=== PATIENT | female | born 1940 | race Caucasian/White ===

== ENCOUNTER 2022-11-10 01:19 | Day surgery (SDC) | payer MEDICARE, SELFPAY ==
[2022-10-25 15:06] VITALS: BMI 26.1
[2022-11-10 09:39] VITALS: BP 161/89; PULSE 76; RESP 17; TEMP 36; O2SAT 97; BMI 25.7
[2022-11-10] MEDS: LACTATED RINGERS 1,000 ML 150 ML IV CONT (09:55)
--- NOTE | 2022-11-10 10:09 | PM.HPGS ---
History of Present Illness History of Present Illness Consent: Risks, benefits, and alternatives have been discussed and questions answered. Patient agrees to proceed with procedure. Chief complaint: positive cologuard Narrative: Carolina Herrera is a 81 year old female referred for colon cancer screening. She was found have a positive Cologuard test Review of Systems Review of Systems: All systems reviewed & are unremarkable except as noted in HPI and below PMFSH Past Medical History Medical History Allergies Arthritis History of torn meniscus of knee Hypertension Thyroid disorder Trigger thumb, right thumb Surgical History Surgical History History of appendectomy History of bilateral mastectomy History of carpal tunnel surgery History of elbow surgery History of partial hysterectomy History of removal of ovarian cyst History of thyroidectomy History of tonsillectomy Family History Family History Father Hypertension Mother Diabetes mellitus Hypertension Depression Anxiety Heart disease Sibling Diabetes mellitus Hypertension Depression Anxiety Heart disease COPD (chronic obstructive pulmonary disease) Social History Social History Smoking status: Never smoker Alcohol intake: current Alcohol use details: 1 glass of wine every 2 months or so Lack of Transportation: No Lack of Food: Never True Current Housing: I Have Housing Concerned About Future Housing: No Difficulty Paying Gas/Electric Bills: No Difficulty Paying for Meds: No Currently Unemployed: No Education: High School Diploma/GED Difficulty w/ Childcare or Family Care: No Living arrangements: with family Spiritual care concerns: No Meds Home Medications and Allergies Home Medications Medication Instructions Recorded Confirmed Type cetirizine 10 mg tablet 5 mg PO DAILY 06/07/20 11/10/22 History vitamin B complex (B 1 tablet PO DAILY 06/07/20 11/10/22 History Complex-Vitamin B12 tablet) ergocalciferol (vitamin D2) 1,250 50,000 unit PO WEEKLY #12 caps 06/02/22 11/10/22 Rx mcg (50,000 unit) capsule metoprolol succinate 25 mg 12.5 mg PO DAILY #90 tabs 06/26/22 11/10/22 Rx tablet,extended release 24 hr levothyroxine 75 mcg tablet 75 mcg PO DAILY #90 tabs 08/28/22 11/10/22 Rx (Levo-T) lisinopril 20 mg tablet 20 mg PO DAILY #90 tabs 08/31/22 11/10/22 Rx aspirin 81 mg capsule 81 mg PO 3XW 10/25/22 11/10/22 History azelastine 137 mcg (0.1 %) nasal 1 spray intranasal Q12H PRN 10/25/22 11/10/22 History spray aerosol allergies Allergies Allergy/AdvReac Type Severity Reaction Status Date / Time PROCAINE HCL Allergy Unknown chest Uncoded 11/10/22 09:38 heaviness Vital Signs Vital Signs - 24 hr 11/10/22 09:39 Temperature 36.0 C L Pulse Rate 76 Respiratory Rate 17 Blood Pressure 161/89 H Pulse Oximetry 97 Oxygen Delivery Room Air Exam Const: General: alert Orientation/consciousness: patient oriented x3 Resp: Auscultation: clear to auscultation bilaterally Cardio: Rhythm: regular rhythm GI: GI Palp: Yes Soft to palpation and No Tenderness to palpation present (GI) Neuro: General: patient oriented x3 Assessment and Plan Assessment and plan (1) Colon cancer screening: Code(s): Z12.11 - Encounter for screening for malignant neoplasm of colon Status: Acute Assessment and Plan: Colonoscopy with possible biopsy or polypectomy or cautery or injection of substances.
[2022-11-10 11:01] VITALS: BP 110/64; PULSE 89; RESP 20; O2SAT 97
[2022-11-10 11:11] VITALS: BP 117/70; PULSE 66; RESP 16; O2SAT 99
[2022-11-10 11:21] VITALS: BP 135/83; PULSE 63; RESP 18; O2SAT 100
== END 2022-11-10 11:39 | disposition home or self-care (01) ==
PROVIDERS: PCP Internal Medicine; Visit Provider Internal Medicine Gastroenterology
PROC: 0DJD8ZZ Inspection of Lower Intestinal Tract, Via Natural or Artificial Opening Endoscopic (ICD-10-PCS; CPT 45378; principal; 2022-11-10 11:00)
DX: Z12.11 Encounter for screening for malignant neoplasm of colon (principal); K57.30 Diverticulosis of large intestine without perforation or abscess without bleeding; K63.5 Polyp of colon; R19.5 Other fecal abnormalities; I10 Essential (primary) hypertension; E89.0 Postprocedural hypothyroidism
CPT/HCPCS: 45380; 88305; J2704; J7120

== ENCOUNTER 2024-04-24 14:09 | Outpatient (CLI) | payer MEDICARE, SELFPAY ==
--- NOTE | ~2024-04-24 | US_ITS ---
EXAMINATION: US arterial ankle brachial ind DATE: 04/24/2024 14:52 INDICATION: Peripheral vascular disease. Lower limb pain, numbness and tingling and left lower limb f eels cold to touch. TECHNIQUE: Segmental pressures and plethysmographic and Doppler waveforms of the brachial and lower e xtremity arteries were obtained. COMPARISON: None. FINDINGS: Right and left brachial artery pressures of 144 mm Hg and 138 mm Hg, respectively, are concordant (no rmal difference <= 30 mmHg). The right ankle-brachial index (DAWOOD) is 1.13 (normal >= 0.9-1.0). The right great toe-brachial index (TBI) is 0.71 (normal >= 0.65). Arterial Doppler waveforms are biphasic with brisk systolic upstrokes at both right posterior tibial and dorsalis pedis arteries. The left DAWOOD is 1.14. The left TBI is 0.68. Arterial Doppler waveforms are biphasic with brisk systol ic upstrokes at both left posterior tibial and dorsalis pedis arteries. IMPRESSION: 1. No significant arterial occlusive disease with normal bilateral ABIs and TBI's Reviewed, dictated and finalized at location A. IMPRESSION: 1. No significant arterial occlusive disease with normal bilateral ABIs and TBI 's
--- NOTE | ~2024-04-24 | US_ITS ---
EXAMINATION: US carotid duplex BI DATE: 04/24/2024 14:52 INDICATION: Syncope and collapse. TECHNIQUE: Grayscale, color Doppler, and pulsed Doppler images of the cervical carotid arteries were obtained. The degree of vessel stenosis is placed in one of the following categories: normal, <50%, 5 0-69%, >=70% but less than near-occlusion, near-occlusion, or total occlusion. Note that percent sten osis relative to normal distal artery lumen diameter is indirectly measured from velocity measurement s as described by Abel, et al. Radiology 2003; 229:340-346. COMPARISON: None. FINDINGS: RIGHT: The right common carotid artery (CCA) peak systolic velocity (PSV) is 96 cm/s. The right internal car otid artery (ICA) PSV is 77 cm/s. The right ICA end-diastolic velocity (EDV) is 23 cm/s. The right IC A/CCA PSV ratio is 0.8. Grayscale and color Doppler images yield an estimate of <50% diameter reducti on from plaque in the ICA. There is antegrade flow in the right vertebral artery. LEFT: The left CCA PSV is 68 cm/s. The left ICA PSV is 65 cm/s. The left ICA EDV is 20 cm/s. The left ICA/C CA PSV ratio is 1.0. Grayscale and color Doppler images yield an estimate of <50% diameter reduction from plaque in the ICA. There is antegrade flow in the left vertebral artery. IMPRESSION: 1. <50% stenosis in the right internal carotid artery. 2. <50% stenosis in the left internal carotid artery. Reviewed, dictated and finalized at location A.
== END 2024-04-24 14:10 | disposition home or self-care (01) ==
LOC: ANHIMG 14:10
PROVIDERS: PCP Internal Medicine; Visit Provider Internal Medicine
DX: I73.9 Peripheral vascular disease, unspecified (principal); R55 Syncope and collapse; I65.23 Occlusion and stenosis of bilateral carotid arteries
CPT/HCPCS: 93880; 93922

== ENCOUNTER 2024-05-16 10:02 | Outpatient (CLI) | payer MEDICARE, SELFPAY ==
--- NOTE | 2024-05-16 10:05 | ECHO_ITS ---
Patient Info Name: Carolina Herrera Age: 83 years : 1940 Gender: Female Ht: 68 in Wt: 170 lbs BSA: 1.94 m2 HR: 78 bpm BP: 131 / 85 mmHg Heart Rhythm: Sinus Rhythm Technical Quality: Fair Exam Date: 05/16/2024 10:12 AM Exam Location: Echo Lab Patient Status: Outpatient Admit Date: 05/16/2024 Staff Ordering Physician: Michael Roque DO Motion Picture Equipment Machinist: Summer Wright RDCS Attending Provider: Michael Roque DO Referring Physician: Mya GILBERT; Exam Type: CA echo doppler color flow Study Info Indications R55 - Syncope and collapse Complete two-dimensional, color flow and Doppler transthoracic echocardiogram is performed. Summary 1. Complete two-dimensional, color flow and Doppler transthoracic echocardiogram is performed. 2. Left ventricular chamber dimension is normal. 3. Left ventricular systolic function is normal, estimated at 60-65%. 4. The left ventricular diastolic function is grade I diastolic dysfunction. 5. E/e' 8 is minimally elevated. 6. Global longitudinal strain is abnormal at -15.6%. 7. Left atrial chamber dimension is mildly enlarged. 8. There is mild aortic valve sclerosis. 9. There is trace tricuspid valve regurgitation. 10. No pulmonary hypertension, estimated pulmonary arterial systolic pressure is 23 mmHg. Left Ventricle E/e' 8 is minimally elevated. Global longitudinal strain is abnormal at -15.6%. Left ventricular chamber dimension is normal. Left ventricular systolic function is normal, estimated at 60-65%. The left ventricular diastolic function is grade I diastolic dysfunction. Right Ventricle Right ventricular systolic function is normal and with normal TAPSE 1.9 cm. Right ventricular chamber dimension is normal. Left Atria Left atrial chamber dimension is mildly enlarged. Right Atria Right atrial chamber dimension is normal. Aortic Valve The aortic valve is trileaflet. There is mild aortic valve sclerosis. There is no aortic valve stenosis. There is no aortic valve regurgitation. Pulmonic Valve There is no pulmonic regurgitation. Mitral Valve There is no mitral valve stenosis. There is no mitral valve regurgitation. Tricuspid Valve There is trace tricuspid valve regurgitation. No pulmonary hypertension, estimated pulmonary arterial systolic pressure is 23 mmHg. Pericardium/Pleural There is no pericardial effusion. Inferior Vena Cava Normal inferior vena cava with >50% collapse upon inspiration consistent with normal right atrial pressure, 5 mmHg. Aorta The aortic root size at the sinus of Valsalva is normal. Left Ventricular Outflow Tract Name Value Normal LVOT 2D LVOT Diameter 2.0 cm LVOT Doppler LVOT Peak Gradient 4 mmHg LVOT Mean Gradient 2 mmHg LVOT VTI 18 cm LVOT VTI/AV VTI Ratio 0.7 LVOT Stroke Volume 54 ml LVOT CO 3.7 l/min LVOT CI 1.9 l/min/m2 Pulmonic Valve Name Value Normal
--- NOTE | 2024-05-20 12:48 | WPDHOLTEREM ---
Holter/Event Monitor Holter/Event Monitor Date of procedure: 05/20/24 Holter/Event Procedure: 48 Hr Holter Monitor Diagnosis: Syncope Indications: Syncope Image/Tracing Quality: Adequate. Total analysis time of 47 hours and 59 minutes. Findin. Predominant rhythm is sinus rhythm with an average heart rate of 75 beats per minute. The minimum heart rate was 52 beats per minute. The maximum heart rate was 114 beats per minute. 2. No evidence of atrial fibrillation, SVT, pauses, heart block or ventricular tachycardia. 3. PAC burden is 0.4%. 4. PVC burden is 1.1%. 5. No patient reported symptoms.
== END 2024-05-16 10:03 | disposition home or self-care (01) ==
PROVIDERS: PCP Internal Medicine; Visit Provider Internal Medicine
DX: R55 Syncope and collapse (principal); I10 Essential (primary) hypertension
CPT/HCPCS: 93225; 93226; 93306

== ENCOUNTER 2024-12-03 10:15 | Outpatient (CLI) | payer MEDICARE, SELFPAY ==
--- NOTE | ~2024-12-03 | XR_ITS ---
EXAMINATION: XR chest 2V 12/03/2024 10:47 INDICATION: Dyspnea PROCEDURE: 2 view chest COMPARISON: 11/19/2018 FINDINGS: The lungs are clear. The cardiomediastinal silhouette is within normal limits. There are no pleural effusions. There is no pneumothorax suspected. There are surgical clips in the left axil la. IMPRESSION: 1: NO ACUTE CARDIOPULMONARY DISEASE. Reviewed, dictated and finalized at location A. LING SORTER
--- OUTSIDE RECORDS SUMMARY | 2024-12-03 11:10 | XMS_ITS | Clinical Summary ---
Author Organization [facility] Address [address] [place] [address] Care Team Providers Care Game Agent Name Role Phone Mya Michael Haines DO Primary Care Provider [phone] Source Comments [facility],non-owned Affiliates and Associated Physician Practices is amultiple site organization consisting of ambulatory clinics and hospital sitesin [place], [place], [place] and [place]. This disclosure is being madepursuant to the Care Everywhere program and may not contain all information available regarding this patient. Last updated 18.[facility] Allergies No known active allergies Medications * Be aware that medications may not be up to date on this document. Alwaysverify current medications with the patient. Medication Sig Dispensed Refills Start Date End Date Status lisinopril-hydroCHLOR Othiazide (PRINZIDE; ZESTORETIC) 20-12.5 MG tablet Take 1 (one) tablet by mouth once daily 10/07/2018 Active levothyroxine (SYNTHROID) 75 MCG tablet Take 1 (one) tablet by mouth once daily 10/07/2018 Active metoprolol succinate XL 24hr (TOPROL XL) 25 MG tablet Take 0.5 (one-half) tablet by mouth once daily 04/25/2019 Active aspirin (ASPIRIN) 81 MG chew tablet Take 1 (one) tablet by mouth every Sunday, Sunday & Sunday Active cetirizine (ZYRTEC) 10 MG tablet Take 1 (one) tablet by mouth once daily as needed Active Cyanocobalamin (VITAMIN B-12 PO) Take by mouth once daily Active Cholecalciferol 1.25 MG (40731 UT) Take 50,000 Units by mouth every 7 days Active pantoprazole EC (PROTONIX) 40 MG tablet Take 40 mg by mouth once daily 11/03/2020 Active vitamin D, ergocalciferol, (DRISDOL) 1.25 mg (50,000 UT) capsule 12/21/2021 Activ e Active Problems Problem Noted Date Diagnosed Date History of melanoma 12/01/2022 Neoplasm of uncertain behavior of skin 2 Digital mucous cyst of finger of right hand 06/2021 Assessment & Plan (11/13/2020 1:02 PM SHRIMP CLEANER): ?? Counseled pt on Dx, etiology, disease course, and Tx options. ?? After thorough discussion of risks/benefit and expectations, pt wish to proceed with the plan of: ?? Hand Surgeon Referral [place] angioma 11/12/2020 Assessment & Plan (11/13/2020 1:03 PM SHRIMP CLEANER): ?? Explained benign nature, reassurance provided. Basal cell carcinoma (BCC) of skin of trunk 06/2020 Xerosis cutis 12/26/2019 History of actinic keratoses 11/15/2018 Melanocytic nevi of trunk 11/10/2017 Inflamed seborrheic keratosis 11/10/2017 History of nonmelanoma skin cancer 11/10/2017 Assessment & Plan (11/13/2020 1:03 PM SHRIMP CLEANER): -No evidence of recurrence -Sun protection behaviors advised Seborrheic keratosis 10/25/2015 Assessment & Plan (11/13/2020 1:02 PM SHRIMP CLEANER): ?? Explained benign nature, reassurance provided. Lentigines 10/25/2015 Actinic keratosis 10/16/2014 Encounters Date Type Department Care Team Description 10/10/2024 10:00 AM SHRIMP CLEANER Office Visit [facility] - Dermatology [address] [place] [address] [place] [address] Jorge L Carpio MD Melanocytic nevi of trunk (Primary Dx); History of melanoma; History of nonmelanoma skin cancer; Seborrheic keratosis; Solar lentiginosis; Inflamed seborrheic keratosis; Hemangioma of lip 10/10/2024 Travel from Last 3 Months Immunizations Name Administration Dates Next Due INFLUENZA VACCINE 08/26/2022,08/15/2021,07/26/20 19 INFLUENZA VACCINE, ADJUVANTE D, QUADR. (FLUAD QUADRIVALENT; 65Y+) (AIIV4) 08/14/2020 Zoster Hzv Vacc Recombinant Inj Im 10/31/2020, Family History Medical History Relation Name Comments None Known Brother Cancer - Skin, Non Melanoma Father None Known Maternal Aunt None Known Maternal Grandfather None Known Maternal Grandmother None Known Maternal Uncle None Known Mother None Known Other None Known Paternal Aunt None Known Paternal Grandfather None Known Paternal Grandmother None Known Paternal Uncle None Known Sister Allergy (Severe) Neg Hx Asthma Neg Hx CVA Neg Hx Cancer Neg Hx Cancer - Breast Neg Hx Cancer - Other Neg Hx Cancer - Skin, Melanoma Neg Hx Eczema Neg Hx Hemophilia Neg Hx Psoriasis Neg Hx Rashes/Skin Problems Neg Hx Relation Name Status Comments Brother Father Maternal Aunt Maternal Grandfather Maternal Grandmother Maternal Uncle Mother Other Paternal Aunt Paternal Grandfather Paternal Grandmother Paternal Uncle Sister Social History Tobacco Use Types Packs/Day Years Used Date Smoking Tobacco: Never Smokeless Tobacco: Never Tobacco Cessation:Counseling Given: Not Answered Alcohol Use Standard Drinks/Week Comments Yes 1 (1 standard drink = 0.6 oz pur e alcohol) maybe 1 drink a month Sex and Gender Information Value Date Recorded Sex Assigned at Not on file Gender Identity Not on file Sexual Orientation Not on file Last Filed Vital Signs Vital Sign Reading Time Taken Comments Blood Pressure 160/90 08/17/2022 1:33 PM CDT Pulse 72 08/17/2022 1:33 PM CDT Temperature - - Respiratory Rate - - Oxygen Saturation 98% 11/22/2016 9:21 AM SHRIMP CLEANER Inhaled Oxygen Concentration - - Weight 72.6 kg (160 lb) 06/03/2020 8:16 AM CDT Height 172.7 cm (5' 8 ) 06/03/2020 8:16 AM CDT Body Mass Index 24.33 06/03/2020 8:16 AM CDT Plan of Treatment Upcoming Encounters Date Type Department Care Team (Late st Contact Info) Description 03/20/2025 9:10 AM CDT Office Visit [facility] - Dermatology [address] [place] [address] Jorge L Carpio MD [address] [place] [address] [address] [place] [address] Health Maintenance Due Date Last Done Comments BONE DENSITY TESTING 1940 DTAP/TDAP/TD VACCINES (1 - Tdap) 1961 PNEUMOCOCCAL VACCINE 50+ (1 of 1 - PCV) 1992 Respiratory Syncytial Virus (RSV) Vaccine Pt: or over 60 yrs (1 - 1-dose 75+ series) 2017 COVID-19 VACCINE ( season) 2024 01/04/2021, 12/02/2020 INFLUENZA VACCINE (#1) 2024 , 08/15/2021, 08/14/2020, Additional history exists DEPRESSION SCREENING 11/05/2024 MEDICARE AWV ? CALENDAR YEAR 2024 ZOSTER VACCINE Completed 10/31/2020, 08/14/2020 HEPATITIS B VACCINE Aged Out No longe r eligible based on patient's age to complete this topic HIB VACCINE Aged Out No longer eligi ble based on patient's age to complete this topic HPV VACCINE Aged Out No longer eligi ble based on patient's age to complete this topic MENINGOCOCCAL (Group B) VACCINE Aged Out No longer eligible based on patient's age to complete this topic MENINGOCOCCAL VACCINE Aged Out No brian jose luis eligible based on patient's age to complete this topic Procedures Procedure Name Priority Date/Time Associated Diagnosis Comments MA DESTRUCT BENIGN LESION, - Routine 10/10/2024 10:46 AM SHRIMP CLEANER Inflamed seborrheic keratosis from Last 3 Months Results * MA DESTRUCT BENIGN LESION, -14 (10/10/2024 10:46 AM SHRIMP CLEANER) Narrative Jorge L Carpio MD - 10/10/2024 10:46 AM SHRIMP CLEANER Tani Vásquez MD ? 10/10/2024 10:47 AM Diagnosis and treatment options discussed. Cryotherapy (Liquid Nitrogen) to 1 ISK(s) x 6-10 seconds each. Number of cycles: 1 Wound care reviewed. Tani Vásquez MD 10/10/2024 PGY-3 Dermatology Resident Jorge L Carpio MD PROCEDURE/MINOR SURG ICAL ORDERABLES from Last 3 Months Care Teams Game Agent Relationship Specialty Start Date End Date Michael Roque DO [address] [place] [address] PCP - General Internal Medicine 10/10/24
--- OUTSIDE RECORDS SUMMARY | 2024-12-03 11:10 | XMS_ITS | Referral Summary ---
Author Organization [facility] Address [address] [place] [address] Care Team Providers Care Heading And Priming Tool Setter Name Role Phone Michael Roque Primary Care Provider [phone] Source Comments [facility],non-owned Affiliates and Associated Physician Practices is amultiple site organization consisting of ambulatory clinics and hospital sitesin [place], [place], [place] and [place]. This disclosure is being madepursuant to the Care Everywhere program and may not contain all information available regarding this patient. Last updated 18.[facility] Encounters Date Type Department Care Team Description 10/10/2024 Travel 10/10/2024 10:00 AM WAREHOUSE MANAGER Office Visit [facility] - Dermatology [address] [place] [phone] Jorge L Carpio MD Melanocytic nevi of trunk (Primary Dx); History of melanoma; History of nonmelanoma skin cancer; Seborrheic keratosis; Solar lentiginosis; Inflamed seborrheic keratosis; Hemangioma of lip from Last 3 Months Allergies No known active allergies Medications * [...] mouth once daily Active Cholecalciferol 1.25 MG (72356 UT) Take 50,000 Units by mouth every [...] 06/2021 Assessment & Plan (11/13/2020 1:02 PM WAREHOUSE MANAGER): ?? Counseled pt on Dx, etiology, disease course, and Tx options. ?? After thorough discussion of risks/benefit and expectations, pt wish to proceed with the plan of: ?? Hand Surgeon Referral [place] angioma 11/12/2020 Assessment & Plan (11/13/2020 1:03 PM WAREHOUSE MANAGER): ?? Explained benign nature, reassurance provided. Basal cell carcinoma (BCC) of skin of trunk 06/2020 Xerosis cutis 12/26/2019 History of actinic keratoses 11/15/2018 Melanocytic nevi of trunk 11/10/2017 Inflamed seborrheic keratosis 11/10/2017 History of nonmelanoma skin cancer 11/10/2017 Assessment & Plan (11/13/2020 1:03 PM WAREHOUSE MANAGER): -No evidence of recurrence -Sun protection behaviors advised Seborrheic keratosis 10/25/2015 Assessment & Plan (11/13/2020 1:02 PM WAREHOUSE MANAGER): ?? Explained benign nature, reassurance provided. Lentigines 10/25/2015 Actinic keratosis 10/16/2014 Immunizations Name Administration Dates Next Due INFLUENZA VACCINE 08/26/2022,08/15/2021,07/26/20 19 INFLUENZA VACCINE, ADJUVANTE D, QUADR. (FLUAD QUADRIVALENT; 65Y+) (AIIV4) 08/14/2020 Zoster Hzv Vacc Recombinant Inj Im 10/31/2020, Social History Tobacco Use Types Packs/Day Years [...] - Oxygen Saturation 98% 11/22/2016 9:21 AM WAREHOUSE MANAGER Inhaled Oxygen Concentration - - Weight 72.6 kg (160 lb) 06/03/2020 8:16 AM CDT Height 172.7 cm (5' 8 ) 06/03/2020 8:16 AM CDT Body Mass Index 24.33 06/03/2020 8:16 AM CDT Plan of Treatment Upcoming Encounters Date Type Department Care Team (Late st Contact Info) Description 03/20/2025 9:10 AM CDT Office Visit [facility] - Dermatology [address] [place] [address], [place] [address] Jorge L Carpio MD [address] [place] [address] [place] [address] Procedures Procedure Name Priority Date/Time Associated Diagnosis Comments [place] DESTRUCT BENIGN LESION, 1-14 Routine 10/10/2024 10:46 AM WAREHOUSE MANAGER Inflamed seborrheic keratosis from Last 3 Months Results * WA DESTRUCT BENIGN LESION, 1-14 (10/10/2024 10:46 AM WAREHOUSE MANAGER) Narrative Jorge L Carpio MD - 10/10/2024 10:46 AM WAREHOUSE MANAGER Tani Vásquez MD ? 10/10/2024 10:47 AM Diagnosis and treatment options discussed. Cryotherapy (Liquid Nitrogen) to 1 ISK(s) x 6-10 seconds each. Number of cycles: 1 Wound care reviewed. Tani Vásquez MD 10/10/2024 PGY-3 Dermatology Resident Jorge L Carpio MD PROCEDURE/MINOR SURG ICAL ORDERABLES from Last 3 Months Care Teams Heading And Priming Tool Setter Relationship Specialty Start Date End Date Michael Roque DO [address] [place] [address] PCP - General Internal Medicine 10/10/24
--- OUTSIDE RECORDS SUMMARY | 2024-12-03 11:10 | XMS_ITS | Patient Health Summary ---
Author Organization [facility] Address [address] [place] [address] Care Team Providers Care Board Certified Music Therapist Name Role Phone MyaMichael DO Primary Care Provider [phone] Note from [facility],non-owned Affiliates and Associated Physician Practices is amultiple site organization consisting of ambulatory clinics and hospital sitesin [place], [place], [place] and [place]. This disclosure is being madepursuant to the Care Everywhere program and may not contain all information available regarding this patient. Last updated 18.[facility] Allergies No known active allergies* Lidocaine(Palpitations) -High Criticality,Inactive * Procaine(Shortness of Breath) -High Criticality,Inactive Medications * Be aware that medications may not be up to date on this document. Alwaysverify current medications with the patient. * lisinopril-hydroCHLOROthiazide (PRINZIDE; ZESTORETIC) 20-12.5 MG tablet (Started 10/07/2018) Take 1 (one) tablet by mouth once daily * levothyroxine (SYNTHROID) 75 MCG tablet(Started 10/07/2018) Take 1 (one) tablet by mouth once daily * metoprolol succinate XL 24hr (TOPROL XL) 25 MG tablet(Started 04/25/2019) Take 0.5 (one-half) tablet by mouth once daily * aspirin (ASPIRIN) 81 MG chew tablet Take 1 (one) tablet by mouth every Sunday, Sunday & Sunday * cetirizine (ZYRTEC) 10 MG tablet Take 1 (one) tablet by mouth once daily as needed * Cyanocobalamin (VITAMIN B-12 PO) Take by mouth once daily * Cholecalciferol 1.25 MG (62837 UT) Take 50,000 Units by mouth every 7 days * pantoprazole EC (PROTONIX) 40 MG tablet(Started 11/03/2020) Take 40 mg by mouth once daily * vitamin D, ergocalciferol, (DRISDOL) 1.25 mg (50,000 UT) capsule(Started 12/21/2021) Active Problems Problem Noted Date Diagnosed Date History of melanoma 12/01/2022 Neoplasm of uncertain behavior of skin 2 Digital mucous cyst of finger of right hand 06/2021 [place] angioma 11/12/2020 Basal cell carcinoma (BCC) of skin of trunk 06/2020 Xerosis cutis 12/26/2019 History of actinic keratoses 11/15/2018 Melanocytic nevi of trunk 11/10/2017 Inflamed seborrheic keratosis 11/10/2017 History of nonmelanoma skin cancer 11/10/2017 Seborrheic keratosis 10/25/2015 Lentigines 10/25/2015 Actinic keratosis 10/16/2014 Immunizations * INFLUENZA VACCINE(Given 08/26/2022, 08/15/2021, 07/26/2019) * INFLUENZA VACCINE, ADJUVANTED, QUADR. (FLUAD QUADRIVALENT; 65Y+) (AIIV4)(Given 08/14/2020) * Zoster Hzv Vacc Recombinant Inj Im(Given 10/31/2020, 08/14/2020) Social History Tobacco Use Types Packs/Day Years [...] - Oxygen Saturation 98% 11/22/2016 9:21 AM ELECTRICAL CONTROLS ENGINEER Inhaled Oxygen Concentration - - Weight 72.6 kg (160 lb) 06/03/2020 8:16 AM CDT Height 172.7 cm (5' 8 ) 06/03/2020 8:16 AM CDT Body Mass Index 24.33 06/03/2020 8:16 AM CDT Procedures * MO DESTRUCT BENIGN LESION, 1-14(Performed 10/10/2024) Performed for Inflamed seborrheic keratosis * MO DESTRUCT BENIGN LESION, 1-14(Performed 04/15/2024) Performed for Inflamed seborrheic keratosis * MO DESTROY PREMALIG LESION, 1ST LESION(Performed 04/15/2024) Performed for Actinic keratosis * MO DESTRUCT BENIGN LESION, 1-14(Performed 09/04/2023) Performed for Seborrheic keratoses, inflamed * MO DESTROY PREMALIG LESION, 1ST LESION(Performed 05/30/2023) Performed for Actinic keratosis * MO DESTROY PREMALIG LESION, 2-14(Performed 05/30/2023) Performed for Actinic keratosis * MO CHMSRG MOHS MG TQ T/A/L 1ST STAG 5 BLOCKS(Performed 12/21/2022) Performed for Basal cell carcinoma (BCC) of chest * MO REPR CMPL WND TRUNK 2.6-7.5CM(Performed 12/21/2022) Performed for Basal cell carcinoma (BCC) of chest * MO TANGNTL BX SKIN SINGLE LES(Performed 12/01/2022) Performed for Neoplasm of uncertain behavior of skin * DERMATOPATHOLOGY(Performed 12/01/2022) Performed for Neoplasm of uncertain behavior of skin * MO INTMD WND REPAIR REST BODY 2.6-7.5(Performed 08/17/2022) Performed for Malignant melanoma of neck (HCC) * PROC EXCISION LESION TRUNK ARM LEG MALIG(Performed 08/17/2022) Performed for Malignant melanoma of neck (HCC) * MO EXC SKIN MALIG 3.1-4CM FACE,FACIAL(Performed 08/10/2022) Performed for Melanoma of neck (HCC) * DERMATOPATHOLOGY(Performed 08/10/2022) Performed for Melanoma of neck (HCC) * MO TANGNTL BX SKIN SINGLE LES(Performed 07/28/2022) Performed for Neoplasm of uncertain behavior of skin * DERMATOPATHOLOGY(Performed 07/28/2022) Performed for Neoplasm of uncertain behavior of skin * MO DESTRUCT BENIGN LESION, 1-14(Performed 01/13/2022) Performed for Seborrheic keratoses, inflamed * MO DESTROY PREMALIG LESION, 1ST LESION(Performed 01/13/2022) Performed for Actinic keratosis * MO DESTR MALIG SCAL,NCK,HAND 1.1-2 CM(Performed 08/12/2020) Performed for Basal cell carcinoma (BCC) of neck * MO CHMSRG MOHS MG TQ H/N/H/F/G 1ST STAG 5 BLOC(Performed 06/03/2020) 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 * MO REPR CMPL WND HEAD,FAC,HAND 1.1-2.5(Performed 06/03/2020) 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 * MO TANGNTL BX SKIN SINGLE LES(Performed 05/14/2020) Performed for Neoplasm of uncertain behavior of skin * MO TANGNTL BX SKIN EA SEP ADDL(Performed 05/14/2020) Performed for Neoplasm of uncertain behavior of skin * DERMATOPATHOLOGY(Performed 05/14/2020) Performed for Neoplasm of uncertain behavior of skin * MO DESTRUCT BENIGN LESION, 1-14(Performed 12/26/2019) Performed for Inflamed seborrheic keratosis * MO DESTROY PREMALIG LESION, 1ST LESION(Performed 12/26/2019) Performed for Actinic keratosis * MO DESTR MALIG TRUNK,EXTREM 0.6-1 CM(Performed 11/26/2018) Performed for Basal cell carcinoma (BCC) of skin of left upper extremity including shoulder * MO TANGNTL BX SKIN SINGLE LES(Performed 11/15/2018) Performed for Neoplasm of uncertain behavior of skin * DERMATOPATHOLOGY(Performed 11/15/2018) Performed for Neoplasm of uncertain behavior of skin * DERMATOPATHOLOGY(Performed 09/06/2016) * DERMATOPATHOLOGY(Performed 07/11/2011) Results * MO DESTRUCT BENIGN LESION, 1-14 (10/10/2024 10:46 AM ELECTRICAL CONTROLS ENGINEER) Narrative Jorge L Carpio MD - 10/10/2024 10:46 AM ELECTRICAL CONTROLS ENGINEER Tani Vásquez MD ? 10/10/2024 10:47 AM Diagnosis and treatment options discussed. Cryotherapy (Liquid Nitrogen) to 1 ISK(s) x 6-10 seconds each. Number of cycles: 1 Wound care reviewed. Tani Vásquez MD 10/10/2024 PGY-3 Dermatology Resident Jorge L Carpio MD PROCEDURE/MINOR SURG ICAL ORDERABLES * MO DESTRUCT BENIGN LESION, 1-14 (04/15/2024 5:37 PM CDT) Narrative Jorge L Carpio MD - 04/15/2024 5:37 PM CDT Jorge L Carpio MD ? 04/15/2024 ??5:37 PM Procedure: liquid nitrogen/cryotherapy Liquid nitrogen was applied with the spray cannister to the affected skin lesion(s). The expected reaction ranges from minimal changes to scabbing, crust, blistering, or swelling, which can be painful. Color changes different from the surrounding skin are expected and can be either supervisor bit and shank department or darker--this can sometimes take a long time to fully resolve, and in some cases, it may not ever fully look like the surrounding skin--there is a delicate balance between freezing hard enough for efficacy and such side effects that is different for different people. There is a small risk of infection similar to any time there is a break in the skin. Blister/wound care discussed, handout given. Return if lesions fail to fully resolve. Verbal consent obtained prior to any procedures being done. Jorge L Carpio MD PROCEDURE/MINOR SURG ICAL ORDERABLES * MO DESTROY PREMALIG LESION, 1ST LESION (04/15/2024 5:36 PM CDT) Narrative Jorge L Carpio MD - 04/15/2024 5:36 PM CDT Jorge L Carpio MD ? 04/15/2024 ??5:36 PM Procedure: liquid nitrogen/cryotherapy Liquid nitrogen was applied with the spray cannister to the affected skin lesion(s). The expected reaction ranges from minimal changes to scabbing, crust, blistering, or swelling, which can be painful. Color changes different from the surrounding skin are expected and can be either supervisor bit and shank department or darker--this can sometimes take a long time to fully resolve, and in some cases, it may not ever fully look like the surrounding skin--there is a delicate balance between freezing hard enough for efficacy and such side effects that is different for different people. There is a small risk of infection similar to any time there is a break in the skin. Blister/wound care discussed, handout given. Return if lesions fail to fully resolve. Verbal consent obtained prior to any procedures being done. Jorge L Carpio MD PROCEDURE/MINOR SURG ICAL ORDERABLES * MO DESTRUCT BENIGN LESION, 1-14 (09/04/2023 2:12 PM CDT) Ariana Nolasco MD - 09/04/2023 2:12 PM CDT Connor Peacock MD ? 09/04/2023 ??2:13 PM Diagnosis and treatment options discussed. Liquid nitrogen was applied to 3 lesions (R yarsani, R FA, L FH). The expected reaction ranges from minimal changes to scabbing, crust, blistering, or swelling, which can be painful. Color changes different from the surrounding skin are expected and can be either supervisor bit and shank department or darker--this can sometimes take a long time to fully resolve, and in some cases, it may not ever fully look like the surrounding skin--there is a delicate balance between freezing hard enough for efficacy and such side effects that is different for different people. There is a small risk of infection similar to any time there is a break in the skin. Blister/wound care discussed, handout given. Return if lesions fail to fully resolve. Verbal consent obtained prior to any procedures being done. Connor Peacock MD [facility] Dermatology Resident, PGY-4 Ariana Blandon MD PROCEDURE/MINOR SURG ICAL ORDERABLES * MO DESTROY PREMALIG LESION, 2-14, MO DESTROY PREMALIG LESION, 1ST LESION (05/30/2023 8:04 AM CDT) Narrative Jorge L Carpio MD - 05/30/2023 8:04 AM CDT Jorge L Carpio MD ? 05/30/2023 ??8:04 AM Procedure: liquid nitrogen/cryotherapy Liquid nitrogen was applied with the spray cannister to the affected skin lesion(s). The expected reaction ranges from minimal changes to scabbing, crust, blistering, or swelling, which can be painful. Color changes different from the surrounding skin are expected and can be either supervisor bit and shank department or darker--this can sometimes take a long time to fully resolve, and in some cases, it may not ever fully look like the surrounding skin--there is a delicate balance between freezing hard enough for efficacy and such side effects that is different for different people. There is a small risk of infection similar to any time there is a break in the skin. Blister/wound care discussed, handout given. Return if lesions fail to fully resolve. Verbal consent obtained prior to any procedures being done. Jorge L Carpio MD PROCEDURE/MINOR SURG ICAL ORDERABLES * MO REPR CMPL WND TRUNK 2.6-7.5CM, MO CHMSRG MOHS MG TQ T/A/L 1ST STAG 5 BLOCKS (12/21/2022 2:10 PM ELECTRICAL CONTROLS ENGINEER) Narrative Danica Lezama MD - 12/21/2022 2:10 PM ELECTRICAL CONTROLS ENGINEER Danica Lezama MD ? 12/22/2022 ??5:03 PM Mohs Micrographic Surgery Operative Note Procedure: Mohs micrographic surgery Date of service: 12/21/2022 Location: left upper chest Preop diagnosis: Basal cell carcinoma; infiltrative Postop diagnosis: Same Mohs AUC score: 7 Number of stages: 1 Preop size: 1.0x1.4 cm Postop size: 2.2x2.3 cm Depth of final defect: adipose Previous dermpath accession #: [id number] Repair type: complex Mohs accession #: [id number] Surgeon and Pathologist: Danica Lezama MD served as both surgeon and pathologist. No other physician was involved in the cancer removal or pathology interpretation. Assistants: N/A Indications for Mohs Surgery Removal of the patient's tumor is complicated by the following clinical features: aggressive pattern on initial pathology. Based on my medical judgement, Mohs surgery is the most appropriate treatment for this cancer compared to other treatments. I discussed alternative treatments to Mohs surgery and specifically discussed the risks and benefits of curettage, excision with permanent sections, and foregoing treatment. The rationale for Mohs was explained to the patient and consent was obtained. The risks, benefits and alternatives to therapy were discussed in detail. Specifically, the risks of infection, scarring, bleeding, prolonged wound healing, incomplete removal, allergy to anesthesia, nerve injury and recurrence were addressed. Prior to the procedure, the treatment site was clearly identified and confirmed by the patient. All components of [place] Protocol/PAUSE Rule completed. STAGE I: The patient was placed on the operating table. The cancer was identified and outlined. The entire surgical field was prepped with hibiclens. The surgical site was anesthetized using Lidocaine 1% with epinephrine 1:100,000 buffered with sodium bicarbonate 8.4% in a 1:10 ratio.The area of clinically apparent tumor was debulked with a 2 mm curette. The layer of tissue was then surgically excised using a #15 blade and was then transferred onto a specimen sheet maintaining the orientation of the specimen. Hemostasis was obtained using monopolar electrodesiccation. The wound site was then covered with a dressing while the tissue samples were processed for examination. The specimen was oriented, mapped and divided. Each section was then inked and processed in the Mohs lab using the Mohs protocol and submitted for frozen section. The histopathologic sections were reviewed by the surgeon in conjunction with the reference map. Total blocks: 1 Total slides: 3 Frozen sections were examined by the surgeon. No additional tumor was identified. No additional histologic findings appreciated. Cell morphology: N/A. No tumor seen. Pathological pattern: N/A. No tumor seen. Depth of invasion: N/A. No tumor seen. Scar tissue: Not Present Perineural invasion: Not Present Inflammation obscuring possible tumor presence: Not Present [facility] CLIA # [id number] Mohs laborer laboratory: Danica Lezama MD REPAIR: Complex Primary Surgeon: Danica Lezama MD Work Ticket Distributor: N/A Repair Size: 5.1 cm Sutures: 4-0 PDS Width of underminin.5 cm Free margin of the nostrils, helical rim, or vermilion lip involved: NO Presence of exposed bone/cartilage/tendon/named neurovascular structure: NO Use of retention sutures: YES Indication for complex repair: Complex repair was performed because inelasticity of skin made closure difficult, to avoid a deforming, depressed, and contracted scar, and to preserve the functional anatomy. The defect was identified and a marking pen was used to plan the repair. The area was infiltrated with Lidocaine 1% with epinephrine 1:100,000 buffered with sodium bicarbonate 8.4% in a 1:10 ratio, prepped with iodine and draped with sterile towels. The wound was debeveled. Extensive undermining was performed to a distance of at least 2.5 cm (defect width perpendicular to closure is 2.2 cm) along one edge of the entire surgical defect. Cones were excised within relaxed skin tension lines on both sides of the defect. Hemostasis was obtained using monopolar electrodesiccation. The dermis and subcutaneous tissue were then approximated using buried vertical mattress sutures. Percutaneous simple running sutures were carefully placed for maximum eversion and meticulous wound edge approximation. Careful attention was paid to avoid distorting any nearby free margins. The wound was cleansed with saline and ointment was applied along the wound surface. A sterile pressure dressing was applied. Wound care instructions were given verbally and in writing. The patient left the operating suite in stable condition. Patient was informed that additional refinement of the resulting surgical scar may be used as a second stage of this reconstruction. Angela Temple CMA I have reviewed the note, edited it as necessary and performed the entire procedure. Danica Lezama MD Dementia Program Director 12/21/2022 Danica Lezama MD PROCEDURE/MINOR SURG ICAL ORDERABLES * MO TANGNTL BX SKIN SINGLE LES (12/01/2022 9:51 AM ELECTRICAL CONTROLS ENGINEER) Narrative oJrge L Carpio MD - 12/01/2022 9:51 AM ELECTRICAL CONTROLS ENGINEER Edward Sue MD ? 12/01/2022 ??9:51 AM Risks, benefits and alternatives to shave biopsy were discussed with the patient. Verbal consent was obtained. Encounter Diagnoses Name Primary? ? ? History of melanoma Yes ? ? History of nonmelanoma skin cancer ? Neoplasm of uncertain behavior ?? Location: left upper chest Skin prep: Alcohol Anesthesia: 1% lidocaine with epinephrine Hemostasis: Aluminum chloride Dressing and wound care discussed. Specimen(s) placed in a patient labeled container and sent to [facility]. Patient agrees to phone call for results and message if not available. Edward Sue MD Jorge L Carpio MD PROCEDURE/MINOR SURG ICAL ORDERABLES * DERMATOPATHOLOGY (12/01/2022 12:00 AM ELECTRICAL CONTROLS ENGINEER) Only the most recent of7 resultswithin the time period is included. Case Report Dermatopathology Report ? Case: [id number] ? Authorizing Provider: ??Jorge L Carpio MD ? Collected: ? 12/01/2022 12:00 AM ? Ordering Location: ? [facility] ?Received: ?12/01/2022 10:40 AM ? Dermatology ? Pathologist: ? Jennifer Macias MD ? Specimen: ?Skin, left upper chest ? 3 1:25 PM [facility] Final Diagnosis Specimen A. SKIN, left upper chest: BASAL CELL CARCINOMA, INFILTRATIVE PATTERN (C44.519) 3 1:25 PM [facility] Clinical History BCC vs. ISK vs. Other 3 1:25 PM [facility] Gross Description Specimen A: Received is one formalin filled container labeled with the patient's name and designated left upper chest. The specimen consists of a shave biopsy measuring [id number]. Jar 0. 3 1:25 PM [facility] Microscopic Description Specimen A. SKIN, left upper chest: Within the dermis there are nodular aggregates of basaloid cells associated with fibromyxoid stroma and epithelial-stromal clefts. At the advancing margin of the neoplasm, there are smaller angulated nests that infiltrate the dermis. 3 1:25 PM [facility] Disclaimer An external and internal positive and negative controls are appropriate for the histochemical, immunohistochemical and immunofluorescence stain(s) in this case (if any), except where stated explicitly. The performance characteristics of the stain(s) cited in this report were developed and its performance characteristic determined by the Dermatopathology Laboratory at [facility], directed by Dr. Taiwo Vázquez. These tests need not be, and therefore are not, approved by the [place] Food and Drug Administration. The tests are used for clinical purposes. Billing Codes Specimen Charges Stain Charges 23746 1 3 1:25 PM [facility] Embedded Images 3 1:25 PM [facility] Pathology/Cytolog y TISSUE SPECIMEN FROM SKIN / Unknown 12/01/2022 12/01/2022 10:40 AM ELECTRICAL CONTROLS ENGINEER Jorge L Carpio MD LAB - PATHOLOGY/CYTO LOGY ORDERABLES DERMATOPATHOLOGY LABORATORY [facility] - Department of Dermatology [address], [address] [phone] * MO INTMD WND REPAIR REST BODY 2.6-7.5 (08/17/2022 3:06 PM CDT) Narrative Danica Lezama MD - 08/17/2022 3:06 PM CDT Danica Lezama MD ? 08/19/2022 10:10 PM Patient presents to discuss repair options for the defect resulting from the below procedure: Date of Excision: 08/10/2022 Surgery: Slow Mohs staged excision Stage #: 1 Tumor Type: Malignant melanoma Location: left neck Derm-Path Pre-Op Size: 1.3x1.1 cm Post-Op Size: 3.9 cm Surgical margins: 4.0 cm Level of Defect: fascia Repair Type: path pending DOS: 08/17/2022 REPAIR: Intermediate repair Primary Surgeon: Danica Lezama MD Work Ticket Distributor: N/A Repair Size: 6.8 cm Sutures: 4-0 monocryl. 6-0 fast absorbing gut The defect was identified and a marking pen was used to plan the repair. The area was infiltrated with Lidocaine 1% with epinephrine 1:100,000 buffered with sodium bicarbonate 8.4% in a 1:10 ratio, prepped with hibiclens and draped with sterile towels. The wound was debeveled and undermined widely. Cones were excised within relaxed skin tension lines on both sides of the defect. Hemostasis was obtained using monopolar electrodesiccation. The dermis and subcutaneous tissue were then approximated using buried vertical mattress sutures. Percutaneous simple interrupted sutures were carefully placed for maximum eversion and meticulous wound edge approximation. Careful attention was paid to avoid distorting any nearby free margins. The wound was cleansed with saline and ointment was applied along the wound surface. A sterile pressure dressing was applied. Wound care instructions were given verbally and in writing. The patient left the operating suite in stable condition. Patient was informed that additional refinement of the resulting surgical scar may be used as a second stage of this reconstruction. Dr. Lezama performed the entire surgery, and documentation used to initiate this operative report. I entered the information in our [facility] DocFlowsheet with the information provided by Dr. Lezama on her handwritten, paper format, surgical worksheet, which was then used to initiate the create of this note. Dr. Lezama then reviewed and edited the note as needed to complete the note. Aisha Graf LPN I have reviewed the note, edited it as necessary and performed the entire procedure. Danica Lezama MD Experiential Therapist 08/17/2022 Danica Lezama MD PROCEDURE/MINOR SURG ICAL ORDERABLES * MO EXC SKIN MALIG 3.1-4CM FACE,FACIAL (08/10/2022 1:10 PM CDT) Narrative Danica Lezama MD - 08/10/2022 1:10 PM CDT Danica Lezama MD ? 08/19/2022 ??9:25 PM Date of Service: 08/10/2022 Surgery: Slow Mohs staged excision Stage #: 1 Tumor Type: Malignant melanoma Location: left neck Derm-Path Pre-Op Size: 1.3x1.1 cm Post-Op Size: 3.3 x 3.1 Defect size: 3.9 x 3.9 cm Surgical margins: 1.0 cm Level of Defect: fascia Repair Type: path pending Primary Surgeon: Danica Lezama MD Work Ticket Distributor: N/A INDICATIONS: The risks of bleeding, infection, discomfort, incomplete removal, nerve damage, and scar formation were explained to the patient. The possible need for additional stages, additional surgical procedures or treatment may be recommended based on the pathology results. The patient understands that the surgical site may remain open until the margins are clear of tumor. Evaluation for reconstruction will occur after tumor clearance. All questions were answered. After informed consent and appropriate instructions, the patient underwent the procedure as follows: DESCRIPTION OF PROCEDURE: The patient was positioned in the operating chair. The lesion was identified and the appropriate margins were outlined with a marker. A photo was taken for mapping. The same area was then prepped with chlorhexidine and infiltrated with 0.5% Sensorcaine with eoinephrine. Then the perimeter of the lesion ??was scored deeply to fat followed by deeply scoring the peripheral margin and planned sections with notching of the margin for mapping. The notches were then marked as well as the 12 o'clock position on the specimen. The peripheral margin incision was then extended to the level of subcutaneous fat with a 15 blade scalpel and excised. The specimen and notches were mapped onto a worksheet for future reference. Hemostasis was obtained with ??monopolar electrodessication. The central tumor was excised. The margin of the specimen was sectioned as planned, processed in Mohs fashion, and sent for permanent section assessment of the margin. The wound was cleansed and covered with vaseline and a pressure bandage was applied. Wound care instructions were given verbally and on paper. The patient is to return in 1 week for further surgery pending histopathologic review. Dr. Lezama performed the entire surgery, and documentation used to initiate this operative report. I entered the information in our [employer] DocFlowsheet with the information provided by Dr. Lezama on her handwritten, paper format, surgical worksheet, which was then used to initiate the create of this note. Dr. Lezama then reviewed and edited the note as needed to complete the note. Aisha Graf LPN I have reviewed the note, edited it as necessary and performed the entire procedure. Danica Lezama MD Experiential Therapist 08/10/2022 Danica Lezama MD PROCEDURE/MINOR SURG ICAL ORDERABLES * MO TANGNTL BX SKIN SINGLE LES (07/28/2022 9:55 AM CDT) Narrative Jorge L Carpio MD - 07/28/2022 9:55 AM CDT Ivone Llanos MD ? 07/28/2022 ??9:56 AM Risks, benefits and alternatives to shave biopsy were discussed with the patient. Pt understands the possibility for the following: Bleeding, infection, scar, the possibility of non-diagnostic reading and the potential need for further testing or treatment, including surgical. Stated clearly the size of the specimen and the need to obtain adequate tissue for the most accurate path reading. Pt accepts all of above, verbal consent was obtained. Location: ??L neck Skin prep: Alcohol Anesthesia: 1% lidocaine with epinephrine Hemostasis: Aluminum chloride Dressing and wound care discussed Ivone Llanos MD Dermatology, PGY-2 Jorge L Carpio MD PROCEDURE/MINOR SURG ICAL ORDERABLES * MO DESTRUCT BENIGN LESION, 1-14 (01/13/2022 10:15 AM ELECTRICAL CONTROLS ENGINEER) Narrative Jorge L Carpio MD - 01/13/2022 10:15 AM ELECTRICAL CONTROLS ENGINEER Darcy Friedman MD ? 01/13/2022 10:15 AM Liquid nitrogen was applied for 7-10 seconds to the skin lesion(s) (L shoulder) and the expected blistering or scabbing reaction explained. Patient tolerated the procedure well. Do not pick at the areas. Patient reminded to expect hypopigmented scars from the procedure. Return if lesions fail to fully resolve. Darcy Friedman MD Dermatology PGY-4 Jorge L Carpio MD PROCEDURE/MINOR SURG ICAL ORDERABLES * MO DESTROY PREMALIG LESION, 1ST LESION (01/13/2022 10:15 AM ELECTRICAL CONTROLS ENGINEER) Narrative Jorge L Carpio MD - 01/13/2022 10:15 AM ELECTRICAL CONTROLS ENGINEER Darcy Friedman MD ? 01/13/2022 10:15 AM Liquid nitrogen was applied for 7-10 ??seconds to the skin lesion(s) (nasal tip x1) and the expected blistering or scabbing reaction explained. Patient tolerated the procedure well. Do not pick at the areas. Patient reminded to expect hypopigmented scars from the procedure. Return if lesions fail to fully resolve. Darcy Friedman MD Dermatology PGY-4 Jorge L Carpio MD PROCEDURE/MINOR SURG ICAL ORDERABLES * MO DESTR MALIG SCAL,NCK,HAND 1.1-2 CM (08/12/2020 2:51 PM CDT) Narrative Jorge L Carpio MD - 08/12/2020 2:51 PM CDT Jorge L Carpio MD ? 08/12/2020 ??2:51 PM Procedure Completed: ??ED & C Time out: immediately prior to the procedure, patient and provider/staff verbally confirmed correct patient, correct site, and correct procedure. Educ risk/benefits and potential adverse effects, 100% chance of scar, purpose, statistics of cure, small chance of infection. Informed consent obtained. ED & C Area prepped with alcohol. Lidocaine 1% with epinephrine locally injected. Total cc used: ??3 Pre-op diagnosis: BCC Location: manubrium (inf neck) Size of lesion after first pass: ??1.4 cm Electrodessication and curettage performed to the area x 3 Hemostasis achieved with electrocautery. Patient given written and oral instructions. Procedure tolerated well. Discussed wound care. Jorge L Carpio MD PROCEDURE/MINOR SURG ICAL ORDERABLES * MO REPR CMPL WND HEAD,FAC,HAND 1.1-2.5, MO CHMSRG MOHS MG TQ H/N/H/F/G 1ST STAG 5 BLOC (06/03/2020 3:11 PM CDT) Narrative Shoaib Ballesteros MD - 06/03/2020 3:11 PM CDT Shoaib Ballesteros MD ? 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 PostOp Size: ??0.7x0.7 cm. Mohs Level of Defect: fat Procedure: The patient was placed supine on the operating table. ??The cancer was identified, outlined with a marker, and verified by the patient. ??The entire surgical field was prepped with iodine. ??The surgical site was anesthetized using Lidocaine 1% with epinephrine 1:100,000 buffered with sodium bicarbonate 8.4% in a 1:10 ratio. The area of clinically apparent tumor was debulked with 2mm curette. The layer of tissue was then surgically excised using a #15 blade and was then transferred onto a specimen sheet maintaining the orientation of the specimen. Hemostasis was obtained using monopolar electrodessication. The wound site was then covered with a dressing while the tissue samples were processed for examination. The excised tissue was transported to the [facility] histology laboratory maintaining the tissue orientation. ??The tissue specimen was relaxed so that the entire surgical margin was in a a single horizontal plane for sectioning andinked for precise mapping. ??A precise reference map was drawn to reflect the sectioning of the specimen, colored inking of the margins, and orientation on the patient. ??The tissue was processed using horizontal sectioning ofthe base and continuous peripheral margins. ??The histopathologic sections were reviewed in conjunction with the reference map. Total blocks: ??1 Total slides: ?? 4 No additional tumor was identified on microscopic examination, therefore Mohs surgery was complete. Reconstruction: Complex Closure Primary Surgeon : Lesli Work Ticket Distributor Surgeon : Clyde The patient was taken to the operative suite and placed supine on the operating room table. ??The defect was identified. ?? Appropriate markings were made with a marking pen to plan the repair. ??The area was infiltrated with Lidocaine 1% with epinephrine 1:100,000 buffered with sodium bicarbonate 8.4% in a 1:10 ratio and prepped with iodine and draped with sterile towels. The wound was debeveled and undermined widely. ??Cones were excised within relaxed skin tension lines on both sides of the defect. ??Hemostasis was obtained using monopolar electrodessication. The dermis and subcutaneous tissue were then approximated using buried vertical mattress sutures. Percutaneous running sutures were carefully placed for maximum eversion and meticulous approximation. Repair Size: 2.0 cm Sutures Used: ??5-0 monocryl; 5-0 fast The wound was cleansed with saline and ointment was applied along the wound surface. A sterile pressure dressing was applied. ??Wound care instructions were given verbally and in writing. ??The patient left the operating suite in stable condition. ??Patient was informed that additional refinement of the resulting surgical scar may be used as a second stage of this reconstruction. The Attending surgeon was present for the entire procedure and always immediately available. Simeon Tang MD [facility] Dermatologic Surgery Fellow Shoaib Ballesteros MD PROCEDURE/MINOR SURG ICAL ORDERABLES * MO TANGNTL BX SKIN EA SEP ADDL, MO TANGNTL BX SKIN SINGLE LES (05/14/2020 3:25 PM CDT) Narrative Jorge L Carpio MD - 05/14/2020 3:25 PM CDT Mehrdad Garcia MD ? 05/14/2020 ??3:26 PM Risks, benefits and alternatives to shave biopsy were discussed with the patient, including risks of infection, scar (100% chance), the possibility of non-diagnostic reading, and the potential need for further testing or treatment. Patient expressed understanding and verbal consent was obtained. Location: R brow and manubrium Skin prep: Alcohol Anesthesia: 1% lidocaine with epinephrine Hemostasis: Aluminum Chloride Dressing and wound care discussed. Patient agrees to phone call for results and message if not available. Mehrdad Garcia [facility] Dermatology Resident PGY-3 Jorge L Carpio MD PROCEDURE/MINOR SURG ICAL ORDERABLES Care Teams Board Certified Music Therapist Relationship Specialty Start Date End Date Michael Roque DO [address] [place] [address] PCP - General Internal Medicine 10/10/24
--- OUTSIDE RECORDS SUMMARY | 2024-12-03 11:10 | XMS_ITS | Continuity of Care Document ---
Author Organization [facility] Address [address] [place] [address] Phone Care Team Providers Care Director Loss Prevention Name Role Phone [facility] Unavailable Unavail able Chula Cedeño Unavailable Unavailable Procedures Procedure Date Progressive Lens, Hi Index Tint Photochromatic, Hi Index 0 Anti-reflective Coating Medical Tax Eye Exam & Treatment Refraction Progressive Lens Per Lens Frames Deluxe Tint Photochromatic, Polycarb 9 Anti-reflective Coating Eye Exam & Treatment No Script Refraction Eye Exam & Treatment Refraction Eye Exam & Treatment Advance Directives Directive Yes / No Effective Date File Name No Information Encounters Encounter Description Practice Location Reason(s) For Visit Diagnoses Date Provider Providers Copied on Encounter [facility], [address], [place], [place], [id number], [place] tel:[phone] [facility] No Information 0 Optical Shop [facility] . [address], [address], [place], [place], [address], [place]. tel:[phone] Referring Provider: Marc Jerome OD A, [address], [place], [address]. tel:[phone] g Provider: Chula Cedeño, [address] [place], [address]. tel:[phone] [facility], [address], [place], [place], [address], [place] tel:[phone] [facility] No Information Oct-2 2-201 0 Jerome OD Marc. [address] , [address], [place], [address], [place]. tel:[phone] [facility], [address], [place], [place], [address], [place] tel:[phone] [facility] No Information Apr-1 5-200 9 [facility] . [address], [address], [place], [place], [address], [place]. tel:[phone] Referring Provider: Marc Jerome OD A, [address], [place], [address]. tel:[phone] g Provider: Adriana Fitzgerald, [address] [place], [address]. tel:[phone] [facility], [address], [place], [place], [address], [place] tel:[phone] [facility] No Information Mar-0 5-200 9 Jerome OD Marc. [address] , [address], [place], [address], [place]. tel:[phone] [facility], [address], [place], [place], [address], [place] tel:[phone] [facility] No Information Feb-2 1-200 8 Jerome OD Marc. [address] , [address], [place], [address], [place]. tel:[phone] [facility], [address], [place], [place], [address], [place] tel:[phone] [facility] No Information 5-200 7 Jerome OD Marc. [address] , [address], [place], [address], [place]. tel:[phone] Family History Family Member Type Diagnosis Age At Onset No Information Payers Payer name Insurance type Covered alliance party ID Authoriza tion(s) No Information Social History Type Description Quantity Date Captured Comments Sex Female Smoking Status No Information Chief Complaint And Reason For Visit No Information Reason For Referral Reason For Referral No Information History Of Present Illness Encounter Date Complaint History Of Prese nt Illness No Information Functional Status Date Functional Assessmen t No Information Instructions Date Instruction Additional Infor mation No Information Assessments Type Assessment Date No Information Patient Care Teams Name Effective Dates (start - stop) Status Members No Information
--- OUTSIDE RECORDS SUMMARY | 2024-12-03 11:11 | XMS_ITS | CONTINUITY OF CARE DOCUMENT ---
Author Name estrellita haro Address Unknown Organization [facility] Address [address] [address] [place] [address] Phone [phone] Care Team Providers Care Golf Course Superintendent Name Role Phone GHADA NUNN MD Unavailable GHADA NUNN MD Unavailable [phone] INSURANCE PROVIDERS Payer name Policy type / Coverage type Johnnie red green party ID [facility] [id number] [place] [employer] Medicare [id number]
== END 2024-12-03 10:16 | disposition home or self-care (01) ==
PROVIDERS: PCP Internal Medicine; Visit Provider Internal Medicine
DX: R06.09 Other forms of dyspnea (principal)
CPT/HCPCS: 71046

== ENCOUNTER 2024-12-11 13:28 | Outpatient (CLI) | payer MEDICARE, SELFPAY ==
--- NOTE | ~2024-12-11 | CT_ITS ---
EXAMINATION: CT abdomen pelvis wo con DATE: 12/11/2024 13:49 INDICATION: Pelvic and perineal pain TECHNIQUE: Computed tomography (CT) of the abdomen and pelvis was performed without intravenous contr ast. Automated exposure control and iterative reconstruction technique were employed. The dose-length product was 411.08 mGy-cm. COMPARISON: None FINDINGS: Mild discoid atelectasis/scarring in the right middle lobe and lingula. Heart size is normal. Atheros clerotic coronary artery calcifications and aortic valve calcific lesion. No pericardial or pleural e ffusion. Multiple splenic calcifications and calcified periportal lymph nodes consistent with old gra nulomatous disease. Liver, gallbladder, pancreas, bilateral adrenal glands and kidneys are normal. Th ere are few scattered diverticula along the descending and sigmoid colon without adjacent inflammator y change to suggest diverticulitis. No bowel obstruction. Bladder is normal. The uterus is not identi fied and has likely been surgically resected. No free intraperitoneal gas or fluid. No pathologically enlarged abdominal or pelvic lymphadenopathy. Moderate to severe lumbar spondylosis. IMPRESSION: 1. No acute intra-abdominal/pelvic process. Reviewed, dictated and finalized at location A. RY BAKER
--- OUTSIDE RECORDS SUMMARY | 2024-12-11 13:40 | XMS_ITS | Continuity of Care Document ---
Author Organization [facility] Address [address] [place] [address] Phone Care Team Providers Care Production Operations Manager Name Role Phone [facility] Unavailable Unavail able Chula Cedeño [...] Diagnoses Date Provider Providers Copied on Encounter [facility], [address], [place], [place], [address], [place] tel:[phone] [facility] No Information 0 Optical Shop [facility] . [address], [address], [place], [place], [address], [place]. tel:[phone] Referring Provider: Marc Jerome OD A, [address], [place], [address]. tel:[phone] g Provider: Chula Cedeño, [address] [place], [address]. tel:[phone] [facility], [address], [place], [place], [address], [place] tel:[phone] [facility] No Information Oct-2 2-201 0 Jerome OD Marc. [address] , [address], [place], [address], [place]. tel:[phone] [facility], [address], [place], [place], [address], [place] tel:[phone] [facility] No Information Apr-1 5-200 9 [facility] . [address], [address], [place], [place], [address], [place]. tel:[phone] Referring Provider: Marc Jerome OD A, [address], [place], [address]. tel:[phone] g Provider: Adriana Fitzgerald, [address] [place], [address]. tel:[phone] [facility], [address], [place], [place], [address], [place] tel:[phone] [facility] No Information Mar-0 5-200 9 Jerome OD Marc. [address] , [address], [place], [address], [place]. tel:[phone] [facility], [address], [place], [place], [address], [place] tel:[phone] [facility] No Information Feb-2 1-200 8 Jerome OD Marc. [address] [facility] [address] , [address], [place], [address], [place]. tel:[phone] [facility], [address], [place], [place], [address], [place] tel:[phone] [facility] No Information 5-200 7 Jerome OD Marc. [address] , [address], [place], [address], [place]. tel:[phone] Family History Family Member Type Diagnosis Age At Onset No Information Payers Payer name Insurance type Covered constitution party ID Authoriza tion(s) No Information Social [...]
--- OUTSIDE RECORDS SUMMARY | 2024-12-11 13:41 | XMS_ITS | Referral Summary ---
Author Organization [facility] Address [address] [place] [address] Care Team Providers Care Rickshaw Driver Name Role Phone Michael Roque Primary Care Provider [phone] [facility],non-owned Affiliates and Associated Physician Practices is amultiple site organization consisting of ambulatory clinics and hospital sitesin [place], [place], [place] and [place]. This disclosure is being madepursuant to the Care Everywhere program and may not contain all information available regarding this patient. Last updated 18.[facility] Encounters Date Type Department Care Team Description 10/10/2024 Travel 10/10/2024 10:00 AM SAIL CUTTER Office Visit [facility] - Dermatology [address] [place] [phone] Jorge L Carpio MD Melanocytic nevi of [...] mouth once daily Active Cholecalciferol 1.25 MG (05220 UT) Take 50,000 Units by mouth every [...] 06/2021 Assessment & Plan (11/13/2020 1:02 PM SAIL CUTTER): Counseled pt on Dx, etiology, disease course, and Tx options. After thorough discussion of risks/benefit and expectations, pt wish to proceed with the plan of: Hand Surgeon Referral [place] angioma 11/12/2020 Assessment & Plan (11/13/2020 1:03 PM SAIL CUTTER): Explained benign nature, reassurance provided. Basal cell carcinoma (BCC) of skin of trunk 06/2020 Xerosis cutis 12/26/2019 History of actinic keratoses 11/15/2018 Melanocytic nevi of trunk 11/10/2017 Inflamed seborrheic keratosis 11/10/2017 History of nonmelanoma skin cancer 11/10/2017 Assessment & Plan (11/13/2020 1:03 PM SAIL CUTTER): -No evidence of recurrence -Sun protection behaviors advised Seborrheic keratosis 10/25/2015 Assessment & Plan (11/13/2020 1:02 PM SAIL CUTTER): Explained benign nature, reassurance provided. Lentigines 10/25/2015 [...] - Oxygen Saturation 98% 11/22/2016 9:21 AM SAIL CUTTER Inhaled Oxygen Concentration - - Weight 72.6 kg (160 lb) 06/03/2020 8:16 AM CDT Height 172.7 cm (5' 8 ) 06/03/2020 8:16 AM CDT Body Mass Index 24.33 06/03/2020 8:16 AM CDT Plan of Treatment Upcoming Encounters Date Type Department Care Team (Late st Contact Info) Description 03/20/2025 9:10 AM CDT Office Visit [facility] - Dermatology [address] [place] [address], [facility] [place] [address] Jorge L Carpio MD [address] [place] [address] [place] [address] Procedures Procedure Name Priority Date/Time Associated Diagnosis Comments SD DESTRUCT BENIGN LESION, 1-14 Routine 10/10/2024 10:46 AM SAIL CUTTER Inflamed seborrheic keratosis from Last 3 Months Results * SD DESTRUCT BENIGN LESION, 1-14 (10/10/2024 10:46 AM SAIL CUTTER) Narrative Jorge L Carpio MD - 10/10/2024 10:46 AM SAIL CUTTER Tani Vásquez MD 10/10/2024 10:47 AM Diagnosis and treatment options discussed. Cryotherapy (Liquid Nitrogen) to 1 ISK(s) x 6-10 seconds each. Number of cycles: 1 Wound care reviewed. Tani Vásquez MD 10/10/2024 PGY-3 Dermatology Resident Jorge L Carpio MD PROCEDURE/MINOR SURG ICAL ORDERABLES from Last 3 Months Care Teams Rickshaw Driver Relationship Specialty Start Date End Date Michael Roque DO [address] [place] [address] PCP - General Internal Medicine 10/10/24
--- OUTSIDE RECORDS SUMMARY | 2024-12-11 13:41 | XMS_ITS | CONTINUITY OF CARE DOCUMENT ---
Author Name estrellita haro Address Unknown Organization [facility] Address [address] [place] [address] Phone [phone] Care Team Providers Care Recruiting Scheduler Name Role Phone GHADA NUNN MD Unavailable GHADA NUNN MD Unavailable [phone] INSURANCE PROVIDERS Payer name Policy type / Coverage type Johnnie red alliance party ID [facility] [id number] [place] [employer] Medicare [id number]
--- OUTSIDE RECORDS SUMMARY | 2024-12-11 13:41 | XMS_ITS | Clinical Summary ---
Author Organization [facility] [employer] Address [address] [place] [address] Care Team Providers Care Director Public Policy Name Role Phone Mya Michael Haines DO Primary Care Provider [phone] Source Comments [facility] [employer],non-owned Affiliates and Associated Physician Practices is amultiple site organization consisting of ambulatory clinics and hospital sitesin [place], [place], [place] and [place]. This disclosure is being madepursuant to the Care Everywhere program and may not contain all information available regarding this patient. Last updated 18.[facility] [employer] Allergies No known active allergies Medications * [...] mouth once daily Active Cholecalciferol 1.25 MG (72294 UT) Take 50,000 Units by mouth every [...] 06/2021 Assessment & Plan (11/13/2020 1:02 PM DRAFTER (CAD) ELECTRICAL): Counseled pt on Dx, etiology, disease course, and Tx options. After thorough discussion of risks/benefit and expectations, pt wish to proceed with the plan of: Hand Surgeon Referral [place] angioma 11/12/2020 Assessment & Plan (11/13/2020 1:03 PM DRAFTER (CAD) ELECTRICAL): Explained benign nature, reassurance provided. Basal cell carcinoma (BCC) of skin of trunk 06/2020 Xerosis cutis 12/26/2019 History of actinic keratoses 11/15/2018 Melanocytic nevi of trunk 11/10/2017 Inflamed seborrheic keratosis 11/10/2017 History of nonmelanoma skin cancer 11/10/2017 Assessment & Plan (11/13/2020 1:03 PM DRAFTER (CAD) ELECTRICAL): -No evidence of recurrence -Sun protection behaviors advised Seborrheic keratosis 10/25/2015 Assessment & Plan (11/13/2020 1:02 PM DRAFTER (CAD) ELECTRICAL): Explained benign nature, reassurance provided. Lentigines 10/25/2015 Actinic keratosis 10/16/2014 Encounters Date Type Department Care Team Description 10/10/2024 10:00 AM DRAFTER (CAD) ELECTRICAL Office Visit [facility] - Dermatology [address] [place] [address] [place] [address] Jorge L Carpio MD Melanocytic nevi of [...] - Oxygen Saturation 98% 11/22/2016 9:21 AM DRAFTER (CAD) ELECTRICAL Inhaled Oxygen Concentration - - Weight 72.6 kg (160 lb) 06/03/2020 8:16 AM CDT Height 172.7 cm (5' 8 ) 06/03/2020 8:16 AM CDT Body Mass Index 24.33 06/03/2020 8:16 AM CDT Plan of Treatment Upcoming Encounters Date Type Department Care Team (Late st Contact Info) Description 03/20/2025 9:10 AM CDT Office Visit [facility] - Dermatology [address] [facility], [place] [address] Jorge L Carpio MD [address] [facility] [address] [place] [address] Health Maintenance Due Date Last Done Comments BONE DENSITY TESTING 1942 DTAP/TDAP/TD VACCINES (1 - Tdap) 1961 PNEUMOCOCCAL VACCINE 50+ (1 of 1 - PCV) 1992 Respiratory Syncytial Virus (RSV) Vaccine Pt: or over 60 yrs (1 - 1-dose 75+ series) 2017 COVID-19 VACCINE ( season) 2024 01/04/2021, 12/02/2020 INFLUENZA VACCINE (#1) 2024 2, 08/15/2021, 08/14/2020, Additional history exists DEPRESSION SCREENING 11/05/2024 MEDICARE AWV CALENDAR YEAR 2024 ZOSTER VACCINE Completed 10/31/2020, [...] Procedure Name Priority Date/Time Associated Diagnosis Comments AL DESTRUCT BENIGN LESION, - Routine 10/10/2024 10:46 AM DRAFTER (CAD) ELECTRICAL Inflamed seborrheic keratosis from Last 3 Months Results * AL DESTRUCT BENIGN LESION, -14 (10/10/2024 10:46 AM DRAFTER (CAD) ELECTRICAL) Narrative Jorge L Carpio MD - 10/10/2024 10:46 AM DRAFTER (CAD) ELECTRICAL Tani Vásquez MD 10/10/2024 10:47 AM Diagnosis and treatment options discussed. Cryotherapy (Liquid Nitrogen) to 1 ISK(s) x 6-10 seconds each. Number of cycles: 1 Wound care reviewed. Tani Vásquez MD 10/10/2024 PGY-3 Dermatology Resident Jorge L Carpio MD PROCEDURE/MINOR SURG ICAL ORDERABLES from Last 3 Months Care Teams Director Public Policy Relationship Specialty Start Date End Date Michael Roque DO [address] [place], [place] [id number] PCP - General Internal Medicine 10/10/24
--- OUTSIDE RECORDS SUMMARY | 2024-12-11 13:41 | XMS_ITS | Clinical Summary ---
Author Organization [facility] Address [address] [place] [id number] Care Team Providers Care Technical Supervisor Name Role Phone Jacob Spring MD Primary Care Provider [phone] Allergies Active Allergy Reactions Criticality Noted Date Comments Procaine Other (See Comments) 10/20/2009 Chest pain Medications nebivolol (BYSTOLIC) 5 mg Oral Tab Take 5 mg by mouth. Active cetirizine (ZYRTEC) 10 mg Oral tablet Take 10 mg by mouth daily. Active aspirin (GRISELDA) 81 mg Oral Tab Take 81 mg by mouth daily. Active lisinopril-hydroc hlorothiazide (ZESTORETIC) 20-12.5 mg tabletIndications :DCIS (ductal carcinoma in situ),S/P bilateral mastectomy 11/06/2013 Active LEVOTHYROXINE 75 mcg tabletIndications :S/P bilateral mastectomy,DCIS (ductal carcinoma in situ), unspecified laterality 11/16/2014 Active citalopram (CELEXA) 20 mg tabletIndications :S/P bilateral mastectomy,DCIS (ductal carcinoma in situ), unspecified laterality 11/16/2014 Active cholecalciferol 50,000 unit Capsule Take by mouth. Active Active Problems Patient Care Coordination No te Formatting of this note migh t be different from the original. Primary Care: Jacob Spring MD Referring Provider: Jacob Spring MD [address] [place] [address] Other: Problem Noted Date Diagnosed Date S/P bilateral mastectomy 11/14/2010 HTN (hypertension) DCIS (ductal carcinoma in situ) Overview (01/18/2016): LEFT Social History Tobacco Use Types Packs/Day Years Used Date Smoking Tobacco: Never Alcohol Use Standard Drinks/Week Comments Yes 0 (1 standard drink = 0.6 oz pur e alcohol) rarely Comments No Sex and Gender Information Value Date Recorded Sex Assigned at Not on file Legal Sex Female 5:39 AM GAS CONTRO[employer] Gender Identity Not on file Sexual Orientation Not on file Last Filed Vital Signs Vital Sign Reading Time Taken Comments Blood Pressure 122/75 01/18/2016 10:34 AM CDT Pulse 73 01/18/2016 10:34 AM CDT Temperature - - Respiratory Rate - - Oxygen Saturation - - Inhaled Oxygen Concentration - - Weight 79.2 kg (174 lb 9.6 oz) 01/18/2016 10:34 AM CDT Height 175.3 cm (5' 9 ) 01/18/2016 10:34 AM CDT Body Mass Index 25.78 01/18/2016 10:34 AM CDT Plan of Treatment Health Maintenance Due Date Last Done Comments DTAP/TDAP/TD VACCINES (1 - Tdap) 1961 PNEUMOCOCCAL VACCINE 65+ YEA RS (1 of 1 - PCV) 1992 OSTEOPOROSIS SCREENING 2007 RSV VACCINE (60+ or ) (1 - 1-dose 75+ series) 2017 INFLUENZA VACCINE (#1) 2024 08/14/2020 ZOSTER VACCINE Completed 10/31/2020, 08/14/2020 Insurance Care Teams Technical Supervisor Relationship Specialty Start Date End Date Jacob Spring MD [address] [place] [address] PCP - General Interventional Cardiology 01/06/14
--- OUTSIDE RECORDS SUMMARY | 2024-12-11 13:41 | XMS_ITS | Patient Health Summary ---
Author Organization [facility] Address [address] [place] [address] Care Team Providers Care Retort Load Expediter Name Role Phone MyaMichael DO Primary Care Provider [phone] Note from [facility],non-owned Affiliates and Associated Physician Practices is amultiple site organization consisting of ambulatory clinics and hospital sitesin [place], [place], [place] and [place]. This disclosure is being madepursuant to the Care Everywhere program and may not contain all information available regarding this patient. Last updated 18.[facility] Allergies No known active allergies* Lidocaine(Palpitations) [...] mouth once daily * Cholecalciferol 1.25 MG (21005 UT) Take 50,000 Units by mouth every [...] - Oxygen Saturation 98% 11/22/2016 9:21 AM [employer] Inhaled Oxygen Concentration - - Weight 72.6 kg (160 lb) 06/03/2020 8:16 AM CDT Height 172.7 cm (5' 8 ) 06/03/2020 8:16 AM CDT Body Mass Index 24.33 06/03/2020 8:16 AM CDT Procedures * ID DESTRUCT BENIGN LESION, 1-14(Performed 10/10/2024) Performed for Inflamed seborrheic keratosis * ID DESTRUCT BENIGN LESION, 1-14(Performed 04/15/2024) Performed for Inflamed seborrheic keratosis * ID DESTROY PREMALIG LESION, 1ST LESION(Performed 04/15/2024) Performed for Actinic keratosis * ID DESTRUCT BENIGN LESION, 1-14(Performed 09/04/2023) Performed for Seborrheic keratoses, inflamed * ID DESTROY PREMALIG LESION, 1ST LESION(Performed 05/30/2023) Performed for Actinic keratosis * ID DESTROY PREMALIG LESION, 2-14(Performed 05/30/2023) Performed for Actinic keratosis * ID CHMSRG MOHS MG TQ T/A/L 1ST STAG 5 BLOCKS(Performed 12/21/2022) Performed for Basal cell carcinoma (BCC) of chest * ID REPR CMPL WND TRUNK 2.6-7.5CM(Performed 12/21/2022) Performed for Basal cell carcinoma (BCC) of chest * ID TANGNTL BX SKIN SINGLE LES(Performed 12/01/2022) Performed for Neoplasm of uncertain behavior of skin * DERMATOPATHOLOGY(Performed 12/01/2022) Performed for Neoplasm of uncertain behavior of skin * ID INTMD WND REPAIR REST BODY 2.6-7.5(Performed 08/17/2022) Performed for Malignant melanoma of neck (HCC) * PROC EXCISION LESION TRUNK ARM LEG MALIG(Performed 08/17/2022) Performed for Malignant melanoma of neck (HCC) * ID EXC SKIN MALIG 3.1-4CM FACE,FACIAL(Performed 08/10/2022) Performed for Melanoma of neck (HCC) * DERMATOPATHOLOGY(Performed 08/10/2022) Performed for Melanoma of neck (HCC) * ID TANGNTL BX SKIN SINGLE LES(Performed 07/28/2022) Performed for Neoplasm of uncertain behavior of skin * DERMATOPATHOLOGY(Performed 07/28/2022) Performed for Neoplasm of uncertain behavior of skin * ID DESTRUCT BENIGN LESION, 1-14(Performed 01/13/2022) Performed for Seborrheic keratoses, inflamed * ID DESTROY PREMALIG LESION, 1ST LESION(Performed 01/13/2022) Performed for Actinic keratosis * ID DESTR MALIG SCAL,NCK,HAND 1.1-2 CM(Performed 08/12/2020) Performed for Basal cell carcinoma (BCC) of neck * ID CHMSRG MOHS MG TQ H/N/H/F/G 1ST STAG 5 BLOC(Performed 06/03/2020) 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 * ID REPR CMPL WND HEAD,FAC,HAND 1.1-2.5(Performed 06/03/2020) 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 * ID TANGNTL BX SKIN SINGLE LES(Performed 05/14/2020) Performed for Neoplasm of uncertain behavior of skin * ID TANGNTL BX SKIN EA SEP ADDL(Performed 05/14/2020) Performed for Neoplasm of uncertain behavior of skin * DERMATOPATHOLOGY(Performed 05/14/2020) Performed for Neoplasm of uncertain behavior of skin * ID DESTRUCT BENIGN LESION, 1-14(Performed 12/26/2019) Performed for Inflamed seborrheic keratosis * ID DESTROY PREMALIG LESION, 1ST LESION(Performed 12/26/2019) Performed for Actinic keratosis * ID DESTR MALIG TRUNK,EXTREM 0.6-1 CM(Performed 11/26/2018) Performed for Basal cell carcinoma (BCC) of skin of left upper extremity including shoulder * ID TANGNTL BX SKIN SINGLE LES(Performed 11/15/2018) Performed for Neoplasm of uncertain behavior of skin * DERMATOPATHOLOGY(Performed 11/15/2018) Performed for Neoplasm of uncertain behavior of skin * DERMATOPATHOLOGY(Performed 09/06/2016) * DERMATOPATHOLOGY(Performed 07/11/2011) Results * ID DESTRUCT BENIGN LESION, 1-14 (10/10/2024 10:46 AM [employer]) Narrative Jorge L Carpio MD - 10/10/2024 10:46 AM [employer] Tani Vásquez MD 10/10/2024 10:47 AM Diagnosis and treatment options discussed. Cryotherapy (Liquid Nitrogen) to 1 ISK(s) x 6-10 seconds each. Number of cycles: 1 Wound care reviewed. Tani Vásquez MD 10/10/2024 PGY-3 Dermatology Resident Jorge L Carpio MD PROCEDURE/MINOR SURG ICAL ORDERABLES * ID DESTRUCT BENIGN LESION, 1-14 (04/15/2024 5:37 PM CDT) Narrative Jorge L Carpio MD - 04/15/2024 5:37 PM CDT Jorge L Carpio MD 04/15/2024 5:37 PM Procedure: liquid nitrogen/cryotherapy Liquid nitrogen was applied with the spray cannister to the affected skin lesion(s). The expected reaction ranges from minimal changes to scabbing, crust, blistering, or swelling, which can be painful. Color changes different from the surrounding skin are expected and can be either network cable installer or darker--this can sometimes take a long [...] Carpio MD PROCEDURE/MINOR SURG ICAL ORDERABLES * ID DESTROY PREMALIG LESION, 1ST LESION (04/15/2024 5:36 PM CDT) Narrative Jorge L Carpio MD - 04/15/2024 5:36 PM CDT Jorge L Carpio MD 04/15/2024 5:36 PM Procedure: liquid nitrogen/cryotherapy Liquid nitrogen was applied with the spray cannister to the affected skin lesion(s). The expected reaction ranges from minimal changes to scabbing, crust, blistering, or swelling, which can be painful. Color changes different from the surrounding skin are expected and can be either network cable installer or darker--this can sometimes take a long [...] Carpio MD PROCEDURE/MINOR SURG ICAL ORDERABLES * ID DESTRUCT BENIGN LESION, 1-14 (09/04/2023 2:12 PM CDT) Ariana Nolasco MD - 09/04/2023 2:12 PM CDT Connor Peacock MD 09/04/2023 2:13 PM Diagnosis and treatment options discussed. Liquid nitrogen was applied to 3 lesions (R restorationist, R FA, L FH). The expected reaction ranges from minimal changes to scabbing, crust, blistering, or swelling, which can be painful. Color changes different from the surrounding skin are expected and can be either network cable installer or darker--this can sometimes take a long [...] any procedures being done. Connor Peacock MD [facility] Dermatology Resident, PGY-4 Ariana Blandon MD PROCEDURE/MINOR SURG ICAL ORDERABLES * ID DESTROY PREMALIG LESION, 2-14, ID DESTROY PREMALIG LESION, 1ST LESION (05/30/2023 8:04 AM CDT) Jorge L Thacker MD - 05/30/2023 8:04 AM CDT Jorge L Carpio MD 05/30/2023 8:04 AM Procedure: liquid nitrogen/cryotherapy Liquid nitrogen was applied with the spray cannister to the affected skin lesion(s). The expected reaction ranges from minimal changes to scabbing, crust, blistering, or swelling, which can be painful. Color changes different from the surrounding skin are expected and can be either network cable installer or darker--this can sometimes take a long [...] Carpio MD PROCEDURE/MINOR SURG ICAL ORDERABLES * ID REPR CMPL WND TRUNK 2.6-7.5CM, ID CHMSRG MOHS MG TQ T/A/L 1ST STAG 5 BLOCKS (12/21/2022 2:10 PM [employer]) Narrative Danica Lezama MD - 12/21/2022 2:10 PM [employer] Danica Lezama MD 12/22/2022 5:03 PM Mohs Micrographic Surgery Operative Note Procedure: Mohs micrographic surgery Date of service: 12/21/2022 Location: left upper chest Preop diagnosis: Basal cell carcinoma; infiltrative Postop diagnosis: Same Mohs AUC score: 7 Number of stages: 1 Preop size: 1.0x1.4 cm Postop size: 2.2x2.3 cm Depth of final defect: adipose Previous dermpath accession #: [id number] Repair type: complex Mohs accession #: [id number] Surgeon and Pathologist: Danica Lezama MD served [...] confirmed by the patient. All components of [place] Protocol/PAUSE Rule completed. STAGE I: The patient [...] presence: Not Present [facility] Mohs CLIA # [id number] Mohs laboratory associate: Danica Lezama MD REPAIR: Complex Primary Surgeon: Danica Lezama MD Cotton Roll Packer: N/A Repair Size: 5.1 cm Sutures: 4-0 [...] performed the entire procedure. Danica Lezama MD Flex O Writer Operator 12/21/2022 Danica Lezama MD PROCEDURE/MINOR SURG ICAL ORDERABLES * ID TANGNTL BX SKIN SINGLE LES (12/01/2022 9:51 AM [employer]) Narrative Jorge L Carpio MD - 12/01/2022 9:51 AM [employer] Edward Sue MD 12/01/2022 9:51 AM Risks, benefits and alternatives to shave biopsy were discussed with the patient. Verbal consent was obtained. Encounter Diagnoses Name Primary? History of melanoma Yes History of nonmelanoma skin cancer Neoplasm of uncertain behavior Location: left upper chest Skin prep: Alcohol Anesthesia: 1% lidocaine with epinephrine Hemostasis: Aluminum chloride Dressing and wound care discussed. Specimen(s) placed in a patient labeled container and sent to [facility] Dermatopathology. Patient agrees to phone call for results and message if not available. Edward Sue MD Jorge L Carpio MD PROCEDURE/MINOR SURG ICAL ORDERABLES * DERMATOPATHOLOGY (12/01/2022 12:00 AM [employer]) Only the most recent of7 resultswithin the time period is included. Case Report Dermatopathology Report Case: [id number] Authorizing Provider: Jorge L Carpio MD Collected: 12/01/2022 12:00 AM Ordering Location: [facility] Received: 12/01/2022 10:40 AM Dermatology Pathologist: Jennifer Macias MD Specimen: Skin, left upper chest 1:25 PM [employer] DERMATOPATHOLOGY LABORATORY Final Diagnosis Specimen A. SKIN, left upper chest: BASAL CELL CARCINOMA, INFILTRATIVE PATTERN (C44.519) 3 1:25 PM [employer] DERMATOPATHOLOGY LABORATORY Clinical History BCC vs. ISK vs. Other 3 1:25 PM [facility] DERMATOPATHOLOGY LABORATORY Gross Description Specimen A: Received is one formalin filled container labeled with the patient's name and designated left upper chest. The specimen consists of a shave biopsy measuring [id number]. Jar 0. 3 1:25 PM [facility] DERMATOPATHOLOGY LABORATORY Microscopic Description Specimen A. SKIN, left upper chest: Within the dermis there are nodular aggregates of basaloid cells associated with fibromyxoid stroma and epithelial-stromal clefts. At the advancing margin of the neoplasm, there are smaller angulated nests that infiltrate the dermis. 3 1:25 PM [facility] DERMATOPATHOLOGY LABORATORY Disclaimer An external and internal positive and negative controls are appropriate for the histochemical, immunohistochemical and immunofluorescence stain(s) in this case (if any), except where stated explicitly. The performance characteristics of the stain(s) cited in this report were developed and its performance characteristic determined by the Dermatopathology Laboratory at [facility], directed by Dr. Taiwo Vázquez. These tests need not be, and therefore are not, approved by the [place] Food and Drug Administration. The tests are used for clinical purposes. Billing Codes Specimen Charges Stain Charges 26793 1 3 1:25 PM [facility] DERMATOPATHOLOGY LABORATORY Embedded Images 3 1:25 PM [facility] DERMATOPATHOLOGY LABORATORY Pathology/Cytolog y TISSUE SPECIMEN FROM SKIN / Unknown 12/01/2022 12/01/2022 10:40 AM [employer] Jorge L Carpio MD LAB - PATHOLOGY/CYTO LOGY ORDERABLES DERMATOPATHOLOGY LABORATORY [facility] - Department of Dermatology [address], [address] [phone] * ID INTMD WND REPAIR REST BODY 2.6-7.5 (08/17/2022 3:06 PM CDT) Narrative Danica Lezama MD - 08/17/2022 3:06 PM CDT Danica Lezama MD 08/19/2022 10:10 PM Patient presents to discuss [...] Intermediate repair Primary Surgeon: Danica Lezama MD Cotton Roll Packer: N/A Repair Size: 6.8 cm Sutures: 4-0 [...] report. I entered the information in our [employer] DocFlowsheet with the information provided by Dr. Leazma on her handwritten, paper format, surgical worksheet, which was then used to initiate the create of this note. Dr. Lezama then reviewed and edited the note as needed to complete the note. Aisha Graf LPN I have reviewed the note, edited it as necessary and performed the entire procedure. Danica Lezama MD Topographic Computator 08/17/2022 Danica Lezama MD PROCEDURE/MINOR SURG ICAL ORDERABLES * ID EXC SKIN MALIG 3.1-4CM FACE,FACIAL (08/10/2022 1:10 PM CDT) Narrative Danica Lezama MD - 08/10/2022 1:10 PM CDT Danica Lezama MD 08/19/2022 9:25 PM Date of Service: 08/10/2022 Surgery: Slow Mohs staged excision Stage #: 1 Tumor Type: Malignant melanoma Location: left neck Derm-Path Pre-Op Size: 1.3x1.1 cm Post-Op Size: 3.3 x 3.1 Defect size: 3.9 x 3.9 cm Surgical margins: 1.0 cm Level of Defect: fascia Repair Type: path pending Primary Surgeon: Danica Lezama MD Cotton Roll Packer: N/A INDICATIONS: The risks of bleeding, infection, [...] eoinephrine. Then the perimeter of the lesion was scored deeply to fat followed by deeply [...] for future reference. Hemostasis was obtained with monopolar electrodessication. The central tumor was excised. The [...] report. I entered the information in our Epic DocFlowsheet with the information provided by Dr. Lezama on her handwritten, paper format, surgical worksheet, which was then used to initiate the create of this note. Dr. Lezama then reviewed and edited the note as needed to complete the note. Aisha Graf LPN I have reviewed the note, edited it as necessary and performed the entire procedure. Danica Lezama MD Topographic Computator 08/10/2022 Danica Lezama MD PROCEDURE/MINOR SURG ICAL ORDERABLES * ID TANGNTL BX SKIN SINGLE LES (07/28/2022 9:55 AM CDT) Narrative Jorge L Carpio MD - 07/28/2022 9:55 AM CDT Ivone Llanos MD 07/28/2022 9:56 AM Risks, benefits and alternatives to shave [...] of above, verbal consent was obtained. Location: L neck Skin prep: Alcohol Anesthesia: 1% lidocaine with epinephrine Hemostasis: Aluminum chloride Dressing and wound care discussed Ivone Llanos MD Dermatology, PGY-2 Jorge L Carpio MD PROCEDURE/MINOR SURG ICAL ORDERABLES * ID DESTRUCT BENIGN LESION, 1-14 (01/13/2022 10:15 AM [employer]) Narrative Jorge L Carpio MD - 01/13/2022 10:15 AM [employer] Darcy Friedman MD 01/13/2022 10:15 AM Liquid nitrogen was applied [...] Carpio MD PROCEDURE/MINOR SURG ICAL ORDERABLES * ID DESTROY PREMALIG LESION, 1ST LESION (01/13/2022 10:15 AM [employer]) Narrative Jorge L Carpio MD - 01/13/2022 10:15 AM [employer] Darcy Friedman MD 01/13/2022 10:15 AM Liquid nitrogen was applied for 7-10 seconds to the skin lesion(s) (nasal tip x1) and the expected blistering or scabbing reaction explained. Patient tolerated the procedure well. Do not pick at the areas. Patient reminded to expect hypopigmented scars from the procedure. Return if lesions fail to fully resolve. Darcy Friedman MD Dermatology PGY-4 Jorge L Carpio MD PROCEDURE/MINOR SURG ICAL ORDERABLES * ID DESTR MALIG SCAL,NCK,HAND 1.1-2 CM (08/12/2020 2:51 PM CDT) Narrative Jorge L Carpio MD - 08/12/2020 2:51 PM CDT Jorge L Carpio MD 08/12/2020 2:51 PM Procedure Completed: ED & C Time out: immediately prior to the procedure, patient and provider/staff verbally confirmed correct patient, correct site, and correct procedure. Educ risk/benefits and potential adverse effects, 100% chance of scar, purpose, statistics of cure, small chance of infection. Informed consent obtained. ED & C Area prepped with alcohol. Lidocaine 1% with epinephrine locally injected. Total cc used: 3 Pre-op diagnosis: BCC Location: manubrium (inf neck) Size of lesion after first pass: 1.4 cm Electrodessication and curettage performed to the area x 3 Hemostasis achieved with electrocautery. Patient given written and oral instructions. Procedure tolerated well. Discussed wound care. 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 PostOp Size: 0.7x0.7 [facility]. [facility] Level of Defect: fat Procedure: The patient was placed supine on the operating table. The cancer was identified, outlined with a marker, and verified by the patient. The entire surgical field was prepped with iodine. The surgical site was anesthetized using Lidocaine [...] The excised tissue was [facility] maintaining the tissue orientation. The tissue specimen was relaxed so that the entire surgical margin was in a a single horizontal plane for sectioning andinked for precise mapping. A precise reference map was drawn to reflect the sectioning of the specimen, colored inking of the margins, and orientation on the patient. The tissue was processed using horizontal sectioning ofthe base and continuous peripheral margins. The histopathologic sections were reviewed in conjunction with the reference map. Total blocks: 1 Total slides: 4 No additional tumor was identified on microscopic examination, therefore Mohs surgery was complete. Reconstruction: Complex Closure Primary Surgeon : Lesli Cotton Roll Packer Surgeon : Clyde The patient was taken to the operative suite and placed supine on the operating room table. The defect was identified. Appropriate markings were made with a marking pen to plan the repair. The area was infiltrated with Lidocaine 1% with epinephrine 1:100,000 buffered with sodium bicarbonate 8.4% in a 1:10 ratio and prepped with iodine and draped with sterile towels. The wound was debeveled and undermined widely. Cones were excised within relaxed skin tension lines on both sides of the defect. Hemostasis was obtained using monopolar electrodessication. The dermis and subcutaneous tissue were then approximated using buried vertical mattress sutures. Percutaneous running sutures were carefully placed for maximum eversion and meticulous approximation. Repair Size: 2.0 cm Sutures Used: 5-0 monocryl; 5-0 fast The wound was cleansed [...] and always immediately available. Simeon Tang MD [facility] Dermatologic Surgery Fellow Shoaib Ballesteros MD PROCEDURE/MINOR SURG ICAL ORDERABLES * ID TANGNTL BX SKIN EA SEP ADDL, ID TANGNTL BX SKIN SINGLE LES (05/14/2020 3:25 PM CDT) Narrative Jorge L Carpio MD - 05/14/2020 3:25 PM CDT Mehrdad Garcia MD 05/14/2020 3:26 PM Risks, benefits and alternatives to shave [...] and message if not available. Mehrdad Garcia [facility] Dermatology Resident PGY-3 Jorge L Carpio MD PROCEDURE/MINOR SURG ICAL ORDERABLES Care Teams Retort Load Expediter Relationship Specialty Start Date End Date Michael Roque DO [address] [place] [address] PCP - General Internal Medicine 10/10/24
== END 2024-12-11 13:29 | disposition home or self-care (01) ==
PROVIDERS: PCP Internal Medicine; Visit Provider Internal Medicine
DX: R10.2 Pelvic and perineal pain (principal)
CPT/HCPCS: 74176

== ENCOUNTER 2024-12-15 09:01 | Outpatient (CLI) | payer MEDICARE, SELFPAY ==
--- NOTE | ~2024-12-15 | NM_ITS ---
EXAMINATION: NM pearl stress w perfusion DATE: 12/15/2024 14:23 INDICATION: Other forms of dyspnea. TECHNIQUE: Rest images were obtained following intravenous administration of 10.6 mCi Tc99m tetrofosm in (Myoview). The patient was infused intravenously with Lexiscan (regadenoson). Then, 34.7 mCi Tc99m tetrofosmin (Myoview) was administered intravenously, and stress images were obtained. Data was bhavna nstructed into short axis and horizontal and vertical long axis SPECT images. Gated SPECT images were also obtained. COMPARISON: CT abdomen and pelvis 12/11/2024 FINDINGS: There is no definite reversible or fixed perfusion abnormality to suggest ischemia or infar ction. There is no segmental wall motion abnormality. Left ventricular ejection fraction measures > 70%. IMPRESSION: 1. No definite ischemia or infarct. 2. Normal left ventricular ejection fraction measuring >70%. Reviewed, dictated and finalized at location A. UNTANT CONTROLLER
--- NOTE | 2024-12-15 09:14 | EST_ITS ---
Patient Info Name: Carolina Herrera Age: 83 years : 1940 Gender: Female Ht: 68 in Wt: 168 lbs BSA: 1.92 m2 HR: 67 bpm BP: 134 / 89 mmHg Exam Date: 12/15/2024 10:35 AM Exam Location: Echo Lab Patient Status: Outpatient Admit Date: 12/15/2024 Staff Ordering Physician: Michael Roque DO Attending Provider: Michael Roque DO Exercise Technologist: Kulwant GARCIA RRT Exercise Physician: Mayito Bernstein DO Exam Type: CA stress pearl w NM Study Info Indications R06.09 - Other forms of dyspnea A regadenoson stress test was performed. Summary 1. 1. Negative lexiscan stress test for ischemic ST changes by ECG criteria. 2. 2. Stable hemodynamics throughout the test. 3. 3. Nuclear scan to follow and will be reported separately. Please correlate with it. 4. 4. Patient informed of the above results. Protocol: Lexiscan Stress ECG Details Stage: REST Duration (min): 0 min : 11 sec HR (bpm): 69 SBP (mmHg): --- DBP (mmHg): --- Stage: REST Duration (min): 6 min : 26 sec HR (bpm): 74 SBP (mmHg): 134 DBP (mmHg): 89 Stage: STAGE 1 Duration (min): 1 min : 0 sec HR (bpm): 83 SBP (mmHg): 142 DBP (mmHg): 80 Stage: RECOVERY Duration (min): 1 min : 0 sec HR (bpm): 91 SBP (mmHg): 142 DBP (mmHg): 80 Stage: RECOVERY Duration (min): 1 min : 37 sec HR (bpm): 88 SBP (mmHg): 142 DBP (mmHg): 80 Rest HR: 74 bpm Peak HR: 92 bpm Rest Sys BP: 134 mmHg Peak Sys BP: 142 mmHg Max Pred HR: 139 bpm % Max Pred HR: 66 % Target HR: 118 bpm Max RPP: 13,064 bpm*mmHg Termination Reason: Completed protocol Cardiac Symptoms: Shortness of breath, Chest pressure Total Time: 1 min : 0 sec Rest Goldsmith BP: 89 mmHg Peak Goldsmith BP: 80 mmHg Total Dose: 0.4 mg Resting ECG Sinus rhythm. Stress ECG No ST changes. Arrhythmias None. Report Signatures
--- OUTSIDE RECORDS SUMMARY | 2024-12-15 09:27 | XMS_ITS | Data Portability ---
Author Organization [place] [facility] [place] [facility], Main Office Address [address] [place] [address] Care Team Providers Care Senior Sql Server Developer Name Role Phone BERNADINE WALDROP Primary Care Provider [phone] BERNADINE WALDROP Referring Provider Assessment Encounter Date Assessment Date Assessment LastModified by Organization Details LastModified Time 04/20/2023 04/20/2023 HPI: 82-year-old female who came in today for evaluation of her left-sided low back pain that radiates into the buttocks and occasionally will radiate down the posterior thigh and lateral calf. She has been having symptoms for about 6 months. They have gotten little bit worse in the sense that they are occurring more frequently. It does not bother her sleeping. It is worse when she is sitting in a recliner or in a car. She states that if she sits upright in a chair she does not have any symptoms. She does get some mild symptoms when she is up walking but she is not limited with her activities or her ability to walk distance. She has had no prior problems with her back. She has been taking Tylenol 500 mg once or twice a day without improvement of her symptoms. Physical exam 82-year-old female very alert pleasant. She walks well without limp. She walks without assistance. She is 5 ft 6 171 lb her BMI is 27.6. Her left hip has full range of motion without discomfort. Negative Stinchfield maneuver, negative straight leg raise. No numbness or tingling light touch left lower extremity. No edema in lower extremity. She has 2+ knee jerk and ankle jerk on the left side. She has normal motor function to the left lower extremity. 2+ dorsalis pedis pulse. Impression: 82-year-old female who has left-sided low back pain radiating to the left leg. I discussed with her that this is not coming from her hip which what she originally thought this was coming from her hip is very normal on the x-rays. This is radicular symptoms coming from the low back. She has no motor or neurological deficit at this point. Has did show management I have recommended meloxicam 15 mg daily. She does have history of hypertension and she does have a blood pressure cuff at home and I advised her to monitor her blood pressure while she is taking it make sure that there was no changes. I have recommended a course of formal physical therapy for low back of stretching and strengthening and core exercises as well. We will see her back in a month for re-evaluation. If she continues to have symptoms at that point then the next step be obtaining an MRI scan of her low back. If she is doing very well she can call and cancel. 30 minutes was spent in treatment patient more half of this in [id number] conversation Not available 04/20/2023 15:47:46 06/06/2023 06/06/2023 HPI: Patient returns. She is here follow-up of her low back pain. She started taking meloxicam and was monitoring her blood pressure and started to go up. She was starting have symptoms from this and subsequently stopped it. She is doing fine now. She did go to formal physical therapy and thinks this has helped quite a bit. She states she still is not completely without symptoms but overall they are very mild at this point very tolerable. Physical exam: 82-year-old female alert pleasant. She is walking well. She is able to flex and extend her low back without any discomfort. She is complaining no symptoms in the legs. Impression: Patient has low back pain has improved with therapy. I encouraged her to continue with the home exercise program long-term basis. I discussed with her that if her symptoms worsen or recur she can call next step would be is to get MRI scan of her back and refer her for possible epidural injections depending on findings from the MRI scan. She will keep that in mind. We will see her back as needed. Not available 06/06/2023 12:13:45 Plan of Treatment Reminders Order Date Submit Date Provider Last Modified By Organization Details Last Modified Time Details Appointments None recorded. Lab None recorded. Referral None recorded. Procedures None recorded. Surgeries None recorded. Imaging XR, hip + pelvis, unilateral , 1 view 2022 023 [email or web address] [facility], [address], [address], 3 15:49:01 XR, lumbar spine 2022 023 [email or web address] [facility], [address], [address], 3 15:49:01 Medication Orders meloxicam 15 mg tablet 2022 023 [email or web address] [id number], [facility] [address], [place], [address], 3 11:44:47 Patient TargetsNo targets recorded. Patient InstructionsNo instructions recorded. Reason for Referral None Reported. Results Created Date Observation Date Name Description Value Unit Range Abnormal Flag Note LastModifiedBy Organization Detail LastModifiedTime 04/20/20 23 XR, hip + pelvi s, unila teral , 1 view No observ ation record ed. [email or web address] [facility] [address], [place], [address], 04/20/2023 15:43:38 04/20/20 23 XR, lumba r spine No observ ation record ed. [email or web address] [facility] [address], [place], [address], 04/20/2023 15:44:06 Result Notes None recorded. 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 Not Available [facility] 3 05:59:00 Pain in left foot 0040259028884 07 Active 2017 Not Available [facility] 3 05:59:00 Hypertensi ve disorder 13195163 Active Not Available [facility] 3 05:59:00 Foot pain 87463018 Active 2019 Not Available [facility] 3 05:59:00 Pain of left hip joint 8336747425559 00 Active 2022 Dia Simon RMA null, [facility] 3 10:41:02 Acquired bilateral pes planus 2794265682314 9109 Active 2022 Arelis Preston, CLERK TO JUSTICE null, [facility] 3 12:12:48 Low back pain 292360482 Active 2022 Dia Simon LUZ MARIAA null, [facility] 3 11:45:26 Problem Notes None recorded. Procedures Surgical History Date Name Laterality Status Provider Name and Address Organization Details Recorded Time 04/29/20 18 Date of Last Pap Smear completed Not Available [facility] 01/03/2023 05:54:10 10/14/20 15 Most Recent Bone Density completed Not Available [facility] 01/03/2023 05:54:10 10/10/20 12 Date of Last Colonoscopy completed Not Available [facility] 01/03/2023 05:54:10 01/30/20 08 Most Recent Mammogram completed Not Available [facility] 01/03/2023 05:54:10 other completed Not Available [facility] 11/2022 05:54:12 Thyroid Surgery completed Not Available [facility] 01/03/2023 05:54:12 Tonsillectomy completed Not Available [facility] 01/03/2023 05:54:12 LIDDER Surgery completed Not Available [facility] 01/03/2023 05:54:12 Breast Surgery completed Not Available [facility] 01/03/2023 05:54:12 Imaging Results Imaging Date Name Status LastModified by Organiz ation Details LastModified Time 04/20/2023 XR, hip + pelvis, unilateral, 1 view completed [email or web address] [facility] [place] [address], [place], [address], 04/20/2023 15:43:38 04/20/2023 XR, lumbar spine completed [email or web address] [facility] [place] [address], [place], [address], 04/20/2023 15:44:06 Procedure Notes None recorded. Medical Equipment None Reported. Allergies Allergen ID Allergen Name Allergen Category Reaction Reaction Severity Criticality Documentation Date Start Date Code Code System Note Provider Name and Address Organization Details Recorded Time 62240 procaine hydrochlo ride medicatio n Not available Not available Not available 01/03/2023 41207 8 RxNorm Not Available [facility] 3 06:04:12 79765 lidocaine medicatio n irregular heart rate severe Not available 01/03/2023 6387 RxNorm rapid heart rate, chest heavi ness ([place] ) Not Available [facility] 3 06:04:12 Medications Name Sig Start Date Stop Date Status Note LastModified by Organization Details LastModified Time amoxicillin 500 mg capsule active Not Available Not Available Not Available lisinopril 20 mg-hydrochl orothiazide 12.5 mg tablet TAKE 1 TABLET BY MOUTH EVERY DAY active Not Available Not Available No t Available azithromyci n 250 mg tablet 04/30 completed Not Available Not Available Not Available meloxicam 15 mg tablet TAKE 1 TABLET BY MOUTH EVERY DAY 06/06 completed Not Available Not Available Not Available lisinopril 20 mg tablet active Not Available Not Available Not Available levothyroxi ne 75 mcg tablet active Not Available Not Available Not Available citalopram 20 mg tablet 04/29 completed Not Available Not Available Not Available Kenalog 10 mg/mL suspension for injection In office injection administe red by the provider active [facility]: 0003- 0494- 20 Not Available Not Available Not Available meclizine 25 mg tablet 04/30 completed Not Available Not Available Not Available cephalexin 500 mg capsule 06/06 completed Not Available Not Available Not Available pantoprazol e 40 mg tablet,gabino yed release active Not Available Not Available Not Available aspirin 81 mg chewable tablet Chew 1 tablet 3 times a week by oral route. 2020 active Not Available Not Available Not Avai lable amoxicillin 250 mg capsule active Not Available Not Available Not Available montelukast 10 mg tablet 04/30 completed Not Available Not Available Not Available clindamycin 2 % vaginal cream INSERT 1 APPLICTOR FUL VAGINALLY EVERY DAY AT BEDTIME FOR 3 DAYS 06/06 completed Not Available Not Available Not Available metoprolol succinate ER 25 mg tablet,exte nded release 24 hr active Not Available Not Available Not Available ergocalcife rol (vitamin D2) 1,250 mcg (50,000 unit) capsule TAKE 1 CAPSULE BY MOUTH ONCE WEEKLY active Not Available Not Available No t Available azelastine 137 mcg (0.1 %) nasal spray active Not Available Not Available Not Available ondansetron 4 mg disintegrat ing tablet 04/30 completed Not Available Not Available Not Available fluticasone propionate 50 mcg/actuati on nasal spray,suspe nsion 12/07 completed Not Available Not Available Not Available tetanus-dip htheria toxoids-Td 2 Lf unit-2 Lf unit/0.5 mL IM suspension active Not Available Not Available N ot Available aspirin 02/23 completed Not Available Not Available Not Available levothyroxi ne 02/23 completed Not Available Not Available Not Available calcium 2017 active Not Available Not Available Not Avai lable Vitamin D 02/23 completed Not Available Not Available Not Available lisinopril 02/23 completed Not Available Not Available Not Available lidocaine (PF) 10 mg/mL (1 %) injection solution In office injection administe red by the provider 04/20 completed [facility] [place]: 0409- 4276- 17 Not Available Not Available Not Available tetanus toxoid,adso rbed (PF) 5 LF unit/0.5 mL intramuscul ar suspension active Not Available Not Available N ot Available azelastine 205.5 mcg (0.15 %) nasal spray active Not Available Not Available Not Available Shingrix (PF) 50 mcg/0.5 mL intramuscul ar suspension, kit 04/20 completed Not Available Not Available Not Available Fluad Quad 5782-9410(6 5yr up)(PF) 60 mcg (15 mcg x 4)/0.5mL IM syringe 04/20 completed Not Available Not Available Not Available BinaxNOW COVID-19 Ag Self Test kit TEST DIRECTED TODAY 06/06 completed Not Available Not Available Not Available Vitals Date Recorded Body mass index (BMI) Body height Body temperature Body weight Systolic blood pressure Diastolic blood pressure Provider Name and Address Organization Details Last Updated DateTime 27.3 kg/m2 168.91 cm 96.8 [degF] 45846.8 9 g 142 mm[Hg] 92 mm[Hg] Not Available [facility] 05:56:35 Date Recorded Body height Body mass index (BMI) Body weight Provider Name and Address Organization Details Last Updated DateTime 04/20/2023 167.64 cm 27.6 kg/m2 65965.3 g Dia Montes [facility] 04/20/2023 11:16:56 Date Recorded Body height Provider Name an d Address Organization Details Last Updated DateTime 06/06/2023 167.64 cm Dia Montes [facility] 06/06/2023 11:44:26 Social History Question Answer Notes LastModified by [employer] Details LastModified Time Tobacco Smoking Status Never Smoker Not Available [facility] 01/03/2023 05:53:41 What Is Your Level Of Alcohol Consumption? Occasional [id number] Information not available 01/03/2023 What Is Your Level Of Caffeine Consumption? Moderate [id number] Information not available 01/03/2023 In The 14 Days Before Symptom Onset, Have You Had Close Contact With A Laboratory-confirm ed COVID-19 While That Case Was Ill? No [id number] Information not available 01/03/2023 In The 14 Days Before Symptom Onset, Have You Had Close Contact With A Person Who Is Under Investigation For COVID-19 While That Person Was Ill? No [id number] Information not available 01/03/2023 Which Illicit Or Recreational Drugs Have You Used? None [id number] Information not available 01/03/2023 What Is Your Occupation? Retired [id number] Information not available 01/03/2023 Sex: Unknown Functional Status Question Answer Note LastModified by [employer] Details LastModified Time What is your exercise level? Occasional [id number] Information not available 01/03/2023 Mental Status None recorded. Family History Relationship Description Onset Age of this Age Resolved Age Notes LastModified by Organization Details LastModified Time Father Family history of malignant neoplasm [email or web address] Not available 2022 10:39:56 Father Hypertensive disorder [email or web address] Not available 2022 10:40:10 Mother Hypertensive disorder [email or web address] Not available 2022 10:40:10 Sister Diabetes mellitus [email or web address] Not available 2022 10:40:29 Notes:no new Medical History Condition Response RADIATION / CHEMOTHERAPY N HYPERTENSION Y CANCER: SPECIFY Y ANXIETY DISORDER Y Gynecological History Statement/Question Response Date of Last Pap Smear 04/29/2018 Current Control Method Hysterectom y Age at Menarche 14 Date of Last Colonoscopy 10/10/2012 Most Recent Mammogram 01/30/2008 Most Recent Bone Density 10/14/2015 Obstetrics History GPAL:G 0 P 0 0 0 0 Immunizations Vaccine Type Date Status Note Provider Nam e and Address Organization Details Recorded Time COVID-19, mRNA, LNP-S, PF, 100 mcg/0.5mL dose or 50 mcg/0.25mL dose 01/04/2021 completed Not Available [facility] 3 06:04:00 COVID-19, mRNA, LNP-S, PF, 100 mcg/0.5mL dose or 50 mcg/0.25mL dose 12/02/2020 completed Not Available [facility] 3 06:04:00 Past Encounters Encounter ID Performer Location Encounter Start Date Encounter Closed Date Diagnosis/Indication Diagnosis SNOMED-CT Code Diagnosis ICD10 Code Diagnosis Note [id number] _ARNIE_ IGRATION_ DEFAULT_1 _1 , 02/23/2021 00:00:00 02/23/2021 12:25:01 [id number] [facility] [address] [place] [address] 04/20/2023 10:19:42 04/20/2023 15:49:01 Pain of left hip joint 9524262268 02042 M25.552 M54.50 Acquired b ilateral pes planus 4967290909 8824830 M21.41 M21.42 [id number] [facility] [place] [address] [place] [address] 06/06/2023 11:40:32 06/06/2023 13:52:00 Low back pain 537930610 M54.50 Health Concerns Section Related Observation LastModified by Organization Detai ls LastModified Time None Recorded Concern Status LastModified by Organization Details LastModified Time None Recorded Advance Directives Directive None Recorded Payers Encounter Date Sequence Insurance Name Policy Number Policy Rosas Covered Member ID Rosas Member ID Guarantor Name 04/20/2023 1 [facility] (MEDICARE REPLACEMENT/A DVANTAGE - PPO) [id number] Carolina Herrera [id number] Carolina Herrera 06/06/2023 1 [facility] (MEDICARE REPLACEMENT/A DVANTAGE - PPO) [id number] Carolina Herrera [id number] Carolina Herrera OBGyn Episode No OBEpisode recorded.
--- OUTSIDE RECORDS SUMMARY | 2024-12-15 09:27 | XMS_ITS | Continuity of Care Document ---
Author Organization [facility] Address [address] [place] [address] Phone Care Team Providers Care Bung Dropper Name Role Phone [facility] Unavailable Unavail able Chula Cedeño Unavailable Unavailable [...] Diagnoses Date Provider Providers Copied on Encounter [facility], [address], [place], [place], [address], [place] tel:[phone] [facility] No Information 0 [facility] . [address], [address], [place], [place], [address], [place]. tel:[phone] Referring Provider: Marc Jerome OD A, [address], [place], [address]. tel:[phone] g Provider: Chula Cedeño, [address] [place], [address]. tel:[phone] [facility], [address], [place], [place], [address], [place] tel:[phone] [facility] No Information Oct-2 2-201 0 Jerome OD Marc. [address] , [address], [place], [address], [place]. tel:[phone] [facility], [address], [place], [place], [address], [place] tel:[phone] [facility] No Information Apr-1 5-200 9 [facility] . [address], [address], [place], [place], [address], [place]. tel:[phone] Referring Provider: Marc Jerome OD A, [address], [place], [address]. tel:[phone] g Provider: Adriana Fitzgerald, [address] [place], [address]. tel:[phone] [facility], [address], [place], [place], [address], [place] tel:[phone] [facility] No Information Mar-0 5-200 9 Jerome OD Marc. [address] [facility] [address] , [address], [place], [address], [place]. tel:[phone] [facility], [address], [place], [place], [address], [place] tel:[phone] [facility] No Information Feb-2 1-200 8 Jerome OD Marc. [address] [facility] [address] [address] , [address], [place], [address], [place]. tel:[phone] [facility], [address], [place], [place], [address], [place] tel:[phone] [facility] No Information 5-200 7 Jerome OD Marc. [address] , [address], [place], [address], [place]. tel:[phone] Family History Family Member Type Diagnosis Age [...]
--- OUTSIDE RECORDS SUMMARY | 2024-12-15 09:27 | XMS_ITS | CONTINUITY OF CARE DOCUMENT ---
Author Name estrellita haro Address Unknown Organization [facility] Address [address] [place] [address] Phone [phone] Care Team Providers Care Water Pipe Installer Name Role Phone GHADA NUNN MD Unavailable GHADA NUNN MD Unavailable [phone] INSURANCE PROVIDERS Payer name Policy type / Coverage type Johnnie red libertarian ID [facility] [id number] [place] [employer] Medicare [id number]
--- OUTSIDE RECORDS SUMMARY | 2024-12-15 09:27 | XMS_ITS | Clinical Summary ---
Author Organization [email or web address] Address [address] [address] Care Team Providers Care Junior Accountant Bookkeeper Name Role Phone yMa Michael Haines DO Primary Care Provider [phone] Source Comments [email or web address],non-owned Affiliates and Associated Physician Practices is amultiple site organization consisting of ambulatory clinics and hospital sitesin [place], [place], [place] and [place]. This disclosure is being madepursuant to the Care Everywhere program and may not contain all information available regarding this patient. Last updated 18.[email or web address] Allergies No known active allergies Medications * [...] mouth once daily Active Cholecalciferol 1.25 MG (82645 UT) Take 50,000 Units by mouth every [...] 06/2021 Assessment & Plan (11/13/2020 1:02 PM HOME ORGANIZER): Counseled pt on Dx, etiology, disease course, and Tx options. After thorough discussion of risks/benefit and expectations, pt wish to proceed with the plan of: Hand Surgeon Referral [place] angioma 11/12/2020 Assessment & Plan (11/13/2020 1:03 PM HOME ORGANIZER): Explained benign nature, reassurance provided. Basal cell carcinoma (BCC) of skin of trunk 06/2020 Xerosis cutis 12/26/2019 History of actinic keratoses 11/15/2018 Melanocytic nevi of trunk 11/10/2017 Inflamed seborrheic keratosis 11/10/2017 History of nonmelanoma skin cancer 11/10/2017 Assessment & Plan (11/13/2020 1:03 PM HOME ORGANIZER): -No evidence of recurrence -Sun protection behaviors advised Seborrheic keratosis 10/25/2015 Assessment & Plan (11/13/2020 1:02 PM HOME ORGANIZER): Explained benign nature, reassurance provided. Lentigines 10/25/2015 Actinic keratosis 10/16/2014 Encounters Date Type Department Care Team Description 10/10/2024 10:00 AM HOME ORGANIZER Office Visit [facility] - Dermatology [address] [place] [address] [place] [address] Jorge L Carpio MD Melanocytic nevi of [...] - Oxygen Saturation 98% 11/22/2016 9:21 AM HOME ORGANIZER Inhaled Oxygen Concentration - - Weight 72.6 kg (160 lb) 06/03/2020 8:16 AM CDT Height 172.7 cm (5' 8 ) 06/03/2020 8:16 AM CDT Body Mass Index 24.33 06/03/2020 8:16 AM CDT Plan of Treatment Upcoming Encounters Date Type Department Care Team (Late st Contact Info) Description 03/20/2025 9:10 AM CDT Office Visit [facility] - Dermatology [address], [place] [address] Jorge L Carpio MD [address] [facility] [address] [place] [address] Health Maintenance Due Date Last Done Comments [...] BENIGN LESION, - Routine 10/10/2024 10:46 AM HOME ORGANIZER Inflamed seborrheic keratosis from Last 3 Months Results * AL DESTRUCT BENIGN LESION, -14 (10/10/2024 10:46 AM HOME ORGANIZER) Narrative Jorge L Carpio MD - 10/10/2024 10:46 AM HOME ORGANIZER Tani Vásquez MD 10/10/2024 10:47 AM Diagnosis and treatment options discussed. Cryotherapy (Liquid Nitrogen) to 1 ISK(s) x 6-10 seconds each. Number of cycles: 1 Wound care reviewed. Tani Vásquez MD 10/10/2024 PGY-3 Dermatology Resident Jorge L Carpio MD PROCEDURE/MINOR SURG ICAL ORDERABLES from Last 3 Months Care Teams Junior Accountant Bookkeeper Relationship Specialty Start Date End Date Michael Roque DO [address] [place], [place] [id number] PCP - General Internal Medicine 10/10/24
--- OUTSIDE RECORDS SUMMARY | 2024-12-15 09:27 | XMS_ITS | Referral Summary ---
Author Organization [facility] Address [address] [place] [address] Care Team Providers Care Solar Pool Heating Installer Name Role Phone Michael Roque Primary Care Provider [phone] Source Comments [facility],non-owned Affiliates and Associated Physician Practices is amultiple site organization consisting of ambulatory clinics and hospital sitesin [place], [place], [place] and [place]. This disclosure is being madepursuant to the Care Everywhere program and may not contain all information available regarding this patient. Last updated 18.[facility] Encounters Date Type Department Care Team Description 10/10/2024 Travel 10/10/2024 10:00 AM NEGATIVE STRIPPER Office Visit [facility] - Dermatology [address] [place] [phone] Jorge L Carpio MD Melanocytic nevi of [...] mouth once daily Active Cholecalciferol 1.25 MG (62377 UT) Take 50,000 Units by mouth every [...] 06/2021 Assessment & Plan (11/13/2020 1:02 PM NEGATIVE STRIPPER): Counseled pt on Dx, etiology, disease course, and Tx options. After thorough discussion of risks/benefit and expectations, pt wish to proceed with the plan of: Hand Surgeon Referral [place] angioma 11/12/2020 Assessment & Plan (11/13/2020 1:03 PM NEGATIVE STRIPPER): Explained benign nature, reassurance provided. Basal cell carcinoma (BCC) of skin of trunk 06/2020 Xerosis cutis 12/26/2019 History of actinic keratoses 11/15/2018 Melanocytic nevi of trunk 11/10/2017 Inflamed seborrheic keratosis 11/10/2017 History of nonmelanoma skin cancer 11/10/2017 Assessment & Plan (11/13/2020 1:03 PM NEGATIVE STRIPPER): -No evidence of recurrence -Sun protection behaviors advised Seborrheic keratosis 10/25/2015 Assessment & Plan (11/13/2020 1:02 PM NEGATIVE STRIPPER): Explained benign nature, reassurance provided. Lentigines 10/25/2015 [...] - Oxygen Saturation 98% 11/22/2016 9:21 AM NEGATIVE STRIPPER Inhaled Oxygen Concentration - - Weight 72.6 kg (160 lb) 06/03/2020 8:16 AM CDT Height 172.7 cm (5' 8 ) 06/03/2020 8:16 AM CDT Body Mass Index 24.33 06/03/2020 8:16 AM CDT Plan of Treatment Upcoming Encounters Date Type Department Care Team (Late st Contact Info) Description 03/20/2025 9:10 AM CDT Office Visit [facility] - Dermatology [address] [place] [address], [facility] [place] [address] Jorge L Carpio MD [address] [place] [address] [place] [address] Procedures Procedure Name Priority Date/Time Associated Diagnosis Comments WA DESTRUCT BENIGN LESION, 1-14 Routine 10/10/2024 10:46 AM NEGATIVE STRIPPER Inflamed seborrheic keratosis from Last 3 Months Results * WA DESTRUCT BENIGN LESION, 1-14 (10/10/2024 10:46 AM NEGATIVE STRIPPER) Narrative Jorge L Carpio MD - 10/10/2024 10:46 AM NEGATIVE STRIPPER Tani Vásquez MD 10/10/2024 10:47 AM Diagnosis and treatment options discussed. Cryotherapy (Liquid Nitrogen) to 1 ISK(s) x 6-10 seconds each. Number of cycles: 1 Wound care reviewed. Tani Vásquez MD 10/10/2024 PGY-3 Dermatology Resident Jorge L Carpio MD PROCEDURE/MINOR SURG ICAL ORDERABLES from Last 3 Months Care Teams Solar Pool Heating Installer Relationship Specialty Start Date End Date Michael Roque DO [address] [place] [address] PCP - General Internal Medicine 10/10/24
--- OUTSIDE RECORDS SUMMARY | 2024-12-15 09:27 | XMS_ITS | Patient Health Summary ---
Author Organization [facility] Address [address] [place] [address] Care Team Providers Care Pss Delivery Professional Name Role Phone MyaMichael DO Primary Care Provider [phone] Note from [facility],non-owned Affiliates and Associated Physician Practices is amultiple site organization consisting of ambulatory clinics and hospital sitesin [place], [place], [place] and [place]. This disclosure is being madepursuant to the [...] mouth once daily * Cholecalciferol 1.25 MG (94573 UT) Take 50,000 Units by mouth every [...] - Oxygen Saturation 98% 11/22/2016 9:21 AM CLAIM ATTORNEY Inhaled Oxygen Concentration - - Weight 72.6 kg (160 lb) 06/03/2020 8:16 AM CDT Height 172.7 cm (5' 8 ) 06/03/2020 8:16 AM CDT Body Mass Index 24.33 06/03/2020 8:16 AM CDT Procedures * MT DESTRUCT BENIGN LESION, 1-14(Performed 10/10/2024) Performed for Inflamed seborrheic keratosis * MT DESTRUCT BENIGN LESION, 1-14(Performed 04/15/2024) Performed for Inflamed seborrheic keratosis * MT DESTROY PREMALIG LESION, 1ST LESION(Performed 04/15/2024) Performed for Actinic keratosis * MT DESTRUCT BENIGN LESION, 1-14(Performed 09/04/2023) Performed for Seborrheic keratoses, inflamed * MT DESTROY PREMALIG LESION, 1ST LESION(Performed 05/30/2023) Performed for Actinic keratosis * MT DESTROY PREMALIG LESION, 2-14(Performed 05/30/2023) Performed for Actinic keratosis * MT CHMSRG MOHS MG TQ T/A/L 1ST STAG 5 BLOCKS(Performed 12/21/2022) Performed for Basal cell carcinoma (BCC) of chest * MT REPR CMPL WND TRUNK 2.6-7.5CM(Performed 12/21/2022) Performed for Basal cell carcinoma (BCC) of chest * MT TANGNTL BX SKIN SINGLE LES(Performed 12/01/2022) Performed for Neoplasm of uncertain behavior of skin * DERMATOPATHOLOGY(Performed 12/01/2022) Performed for Neoplasm of uncertain behavior of skin * MT INTMD WND REPAIR REST BODY 2.6-7.5(Performed 08/17/2022) Performed for Malignant melanoma of neck (HCC) * PROC EXCISION LESION TRUNK ARM LEG MALIG(Performed 08/17/2022) Performed for Malignant melanoma of neck (HCC) * MT EXC SKIN MALIG 3.1-4CM FACE,FACIAL(Performed 08/10/2022) Performed for Melanoma of neck (HCC) * DERMATOPATHOLOGY(Performed 08/10/2022) Performed for Melanoma of neck (HCC) * MT TANGNTL BX SKIN SINGLE LES(Performed 07/28/2022) Performed for Neoplasm of uncertain behavior of skin * DERMATOPATHOLOGY(Performed 07/28/2022) Performed for Neoplasm of uncertain behavior of skin * MT DESTRUCT BENIGN LESION, 1-14(Performed 01/13/2022) Performed for Seborrheic keratoses, inflamed * MT DESTROY PREMALIG LESION, 1ST LESION(Performed 01/13/2022) Performed for Actinic keratosis * MT DESTR MALIG SCAL,NCK,HAND 1.1-2 CM(Performed 08/12/2020) Performed for Basal cell carcinoma (BCC) of neck * MT CHMSRG MOHS MG TQ H/N/H/F/G 1ST STAG 5 BLOC(Performed 06/03/2020) 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 * MT REPR CMPL WND HEAD,FAC,HAND 1.1-2.5(Performed 06/03/2020) 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 * MT TANGNTL BX SKIN SINGLE LES(Performed 05/14/2020) Performed for Neoplasm of uncertain behavior of skin * MT TANGNTL BX SKIN EA SEP ADDL(Performed 05/14/2020) Performed for Neoplasm of uncertain behavior of skin * DERMATOPATHOLOGY(Performed 05/14/2020) Performed for Neoplasm of uncertain behavior of skin * MT DESTRUCT BENIGN LESION, 1-14(Performed 12/26/2019) Performed for Inflamed seborrheic keratosis * MT DESTROY PREMALIG LESION, 1ST LESION(Performed 12/26/2019) Performed for Actinic keratosis * MT DESTR MALIG TRUNK,EXTREM 0.6-1 CM(Performed 11/26/2018) Performed for Basal cell carcinoma (BCC) of skin of left upper extremity including shoulder * MT TANGNTL BX SKIN SINGLE LES(Performed 11/15/2018) Performed for Neoplasm of uncertain behavior of skin * DERMATOPATHOLOGY(Performed 11/15/2018) Performed for Neoplasm of uncertain behavior of skin * DERMATOPATHOLOGY(Performed 09/06/2016) * DERMATOPATHOLOGY(Performed 07/11/2011) Results * MT DESTRUCT BENIGN LESION, 1-14 (10/10/2024 10:46 AM CLAIM ATTORNEY) Narrative Jorge L Carpio MD - 10/10/2024 10:46 AM CLAIM ATTORNEY Tani Vásquez MD 10/10/2024 10:47 AM Diagnosis and treatment options discussed. Cryotherapy (Liquid Nitrogen) to 1 ISK(s) x 6-10 seconds each. Number of cycles: 1 Wound care reviewed. Tani Vásquez MD 10/10/2024 PGY-3 Dermatology Resident Jorge L Carpio MD PROCEDURE/MINOR SURG ICAL ORDERABLES * MT DESTRUCT BENIGN LESION, 1-14 (04/15/2024 5:37 PM [...] skin are expected and can be either conservation biology professor or darker--this can sometimes take a long [...] Carpio MD PROCEDURE/MINOR SURG ICAL ORDERABLES * MT DESTROY PREMALIG LESION, 1ST LESION (04/15/2024 5:36 [...] skin are expected and can be either conservation biology professor or darker--this can sometimes take a long [...] Carpio MD PROCEDURE/MINOR SURG ICAL ORDERABLES * MT DESTRUCT BENIGN LESION, 1-14 (09/04/2023 2:12 PM CDT) Ariana Nolasco MD - 09/04/2023 2:12 PM CDT Connor Peacock MD 09/04/2023 2:13 PM Diagnosis and treatment options discussed. Liquid nitrogen was applied to 3 lesions (R sikhism, R FA, L FH). The expected reaction ranges from minimal changes to scabbing, crust, blistering, or swelling, which can be painful. Color changes different from the surrounding skin are expected and can be either conservation biology professor or darker--this can sometimes take a long [...] any procedures being done. Connor Peacock MD [facility] Dermatology Resident, PGY-4 Ariana Blandon MD PROCEDURE/MINOR SURG ICAL ORDERABLES * MT DESTROY PREMALIG LESION, 2-14, MT DESTROY PREMALIG LESION, 1ST LESION (05/30/2023 8:04 [...] skin are expected and can be either conservation biology professor or darker--this can sometimes take a long [...] Carpio MD PROCEDURE/MINOR SURG ICAL ORDERABLES * MT REPR CMPL WND TRUNK 2.6-7.5CM, MT CHMSRG MOHS MG TQ T/A/L 1ST STAG 5 BLOCKS (12/21/2022 2:10 PM CLAIM ATTORNEY) Narrative Danica Lezmaa MD - 12/21/2022 2:10 PM CLAIM ATTORNEY Danica Lezama MD 12/22/2022 5:03 PM Mohs Micrographic Surgery Operative Note Procedure: Mohs micrographic surgery Date of service: 12/21/2022 Location: left upper chest Preop diagnosis: Basal cell carcinoma; infiltrative Postop diagnosis: Same Mohs AUC score: 7 Number of stages: 1 Preop size: 1.0x1.4 cm Postop size: 2.2x2.3 cm Depth of final defect: adipose Previous dermpath accession #: [id number] Repair type: complex Mohs accession #: [id number] Surgeon and Pathologist: Danica Lezama MD served [...] confirmed by the patient. All components of [place] Protocol/PAUSE Rule completed. STAGE I: The patient [...] presence: Not Present [facility] Mohs CLIA # [id number] Mohs laboratory mechanic helper: Danica Lezama MD REPAIR: Complex Primary Surgeon: Danica Lezama MD Cloth Printing Utility Worker: N/A Repair Size: 5.1 cm Sutures: 4-0 [...] performed the entire procedure. Danica Lezama MD Metal Smelter 12/21/2022 Danica Lezama MD PROCEDURE/MINOR SURG ICAL ORDERABLES * MT TANGNTL BX SKIN SINGLE LES (12/01/2022 9:51 AM CLAIM ATTORNEY) Narrative Jorge L Carpio MD - 12/01/2022 9:51 AM CLAIM ATTORNEY Edward Sue MD 12/01/2022 9:51 AM Risks, [...] a patient labeled container and sent to [facility] Dermatopathology. Patient agrees to phone call for results and message if not available. Edward Sue MD Jorge L Carpio MD PROCEDURE/MINOR SURG ICAL ORDERABLES * DERMATOPATHOLOGY (12/01/2022 12:00 AM CLAIM ATTORNEY) Only the most recent of7 resultswithin the time period is included. Case Report Dermatopathology Report Case: [id number] Authorizing Provider: Jorge L Carpio MD Collected: 12/01/2022 12:00 AM Ordering Location: [facility] Received: 12/01/2022 10:40 AM Dermatology Pathologist: Jennifer Macias MD Specimen: Skin, left upper chest 1:25 PM CLAIM ATTORNEY DERMATOPATHOLOGY LABORATORY Final Diagnosis Specimen A. SKIN, left upper chest: BASAL CELL CARCINOMA, INFILTRATIVE PATTERN (C44.519) 3 1:25 PM CLAIM ATTORNEY DERMATOPATHOLOGY LABORATORY Clinical History BCC vs. ISK vs. Other 3 1:25 PM [facility] DERMATOPATHOLOGY LABORATORY Gross Description Specimen A: Received is one formalin filled container labeled with the patient's name and designated left upper chest. The specimen consists of a shave biopsy measuring [id number]. Jar 0. 3 1:25 PM [facility] DERMATOPATHOLOGY LABORATORY Microscopic Description Specimen A. SKIN, left upper chest: Within the dermis there are nodular aggregates of basaloid cells associated with fibromyxoid stroma and epithelial-stromal clefts. At the advancing margin of the neoplasm, there are smaller angulated nests that infiltrate the dermis. 3 1:25 PM [facility] DERMATOPATHOLOGY LABORATORY Disclaimer An external and internal positive and negative controls are appropriate for the histochemical, immunohistochemical and immunofluorescence stain(s) in this case (if any), except where stated explicitly. The performance characteristics of the stain(s) cited in this report were developed and its performance characteristic determined by the Dermatopathology Laboratory at [facility], directed by Dr. Taiwo Vázquez. These tests need not be, and therefore are not, approved by the [place] Food and Drug Administration. The tests are used for clinical purposes. Billing Codes Specimen Charges Stain Charges 99901 1 3 1:25 PM [facility] DERMATOPATHOLOGY LABORATORY Embedded Images 3 1:25 PM [facility] DERMATOPATHOLOGY LABORATORY Pathology/Cytolog y TISSUE SPECIMEN FROM SKIN / Unknown 12/01/2022 12/01/2022 10:40 AM CLAIM ATTORNEY Jorge L Carpio MD LAB - PATHOLOGY/CYTO LOGY ORDERABLES DERMATOPATHOLOGY LABORATORY [facility] - Department of Dermatology [address] [phone] * MT INTMD WND REPAIR REST BODY 2.6-7.5 (08/17/2022 [...] Intermediate repair Primary Surgeon: Danica Lezama MD Cloth Printing Utility Worker: N/A Repair Size: 6.8 cm Sutures: 4-0 [...] report. I entered the information in our [employer] Service Management DocFlowsheet with the information provided by Dr. Lezama on her handwritten, paper format, surgical worksheet, which was then used to initiate the create of this note. Dr. Lezama then reviewed and edited the note as needed to complete the note. Aisha Graf LPN I have reviewed the note, edited it as necessary and performed the entire procedure. Danica Lezama MD Agriculture Science Teacher 08/17/2022 Danica Lezama MD PROCEDURE/MINOR SURG ICAL ORDERABLES * MT EXC SKIN MALIG 3.1-4CM FACE,FACIAL (08/10/2022 1:10 [...] path pending Primary Surgeon: Danica Lezama MD Cloth Printing Utility Worker: N/A INDICATIONS: The risks of bleeding, infection, [...] performed the entire procedure. Danica Lezama MD Agriculture Science Teacher 08/10/2022 Danica Lezama MD PROCEDURE/MINOR SURG ICAL ORDERABLES * MT TANGNTL BX SKIN SINGLE LES (07/28/2022 9:55 [...] Carpio MD PROCEDURE/MINOR SURG ICAL ORDERABLES * MT DESTRUCT BENIGN LESION, 1-14 (01/13/2022 10:15 AM CLAIM ATTORNEY) Narrative Jorge L Carpio MD - 01/13/2022 10:15 AM CLAIM ATTORNEY Darcy Friedman MD 01/13/2022 10:15 AM Liquid [...] Carpio MD PROCEDURE/MINOR SURG ICAL ORDERABLES * MT DESTROY PREMALIG LESION, 1ST LESION (01/13/2022 10:15 AM CLAIM ATTORNEY) Narrative Jorge L Carpio MD - 01/13/2022 10:15 AM CLAIM ATTORNEY Darcy Friedman MD 01/13/2022 10:15 AM Liquid [...] Carpio MD PROCEDURE/MINOR SURG ICAL ORDERABLES * MT DESTR MALIG SCAL,NCK,HAND 1.1-2 CM (08/12/2020 2:51 PM CDT) Narrative Jorge L Carpio MD - 08/12/2020 2:51 PM CDT Joreg L Carpio MD 08/12/2020 2:51 PM Procedure [...] Carpio MD PROCEDURE/MINOR SURG ICAL ORDERABLES * MT REPR CMPL WND HEAD,FAC,HAND 1.1-2.5, MT CHMSRG MOHS MG TQ H/N/H/F/G 1ST STAG [...] Size: 0.6x0.6 cm. PostOp Size: 0.7x0.7 cm. [facility] [place] De[place]: fat Procedure: The patient [...] The excised tissue was transported to [place] [facility] [place] maintaining the tissue orientation. The [...] Reconstruction: Complex Closure Primary Surgeon : Lesli Cloth Printing Utility Worker Surgeon : Clyde The patient was taken [...] and always immediately available. Simeon Tang MD [facility] Dermatologic Surgery Fellow Shoaib Ballesteros MD PROCEDURE/MINOR SURG ICAL ORDERABLES * MT TANGNTL BX SKIN EA SEP ADDL, MT TANGNTL BX SKIN SINGLE LES (05/14/2020 3:25 [...] and message if not available. Mehrdad Garcia [facility] Dermatology Resident PGY-3 Jorge L Carpio MD PROCEDURE/MINOR SURG ICAL ORDERABLES Care Teams Pss Delivery Professional Relationship Specialty Start Date End Date Michael Roque DO [address] [place] [address] PCP - General Internal Medicine 10/10/24
--- OUTSIDE RECORDS SUMMARY | 2024-12-15 09:27 | XMS_ITS | Clinical Summary ---
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
== END 2024-12-15 09:02 | disposition home or self-care (01) ==
PROVIDERS: PCP Internal Medicine; Visit Provider Internal Medicine
DX: R06.09 Other forms of dyspnea (principal); R53.83 Other fatigue
CPT/HCPCS: 78452; 93017; A9502; J2785